=== PATIENT | male | born 1970 | race American Indian/Alaskan Native ===

== ENCOUNTER 2021-07-07 14:41 | Emergency (ER) | payer SELFPAY ==
[2021-07-07 16:51] LABS: Hematocrit 41.9 % (35.5-45.6); Hemoglobin 14.1 gm/dl (11.8-15.2); Mean Corpuscular HGB Conc 34 % (32-34); Mean Corpuscular Volume 92 fl (84-94); Platelet Count 309 K/mm3 (140-440); Red Blood Count 4.53 M/mm3 (3.65-5.03); Red Cell Distribution Width 13.3 % (13.2-15.2)
[2021-07-07 17:13] LABS: BUN/Creatinine Ratio 14; Blood Urea Nitrogen 15 mg/dL (9-20); Calcium 9.4 mg/dL (8.4-10.2); Hemolysis Index 13
[2021-07-07 17:16] LABS: Alanine Aminotransferase 8 units/L (7-56); Albumin 4.2 g/dL (3.9-5)
[2021-07-07 17:17] LABS: Bilirubin,Direct < 0.2 mg/dL (0-0.2)
--- NOTE | 2021-07-07 17:25 | Cat Scan Report ---
CT head/brain wo con INDICATION / CLINICAL INFORMATION: 50 years Male; seizure. TECHNIQUE: Routine CT head without contrast. All CT scans at this location are performed using CT dos e reduction for ALARA by means of automated exposure control. COMPARISON: None. FINDINGS: BRAIN / INTRACRANIAL CONTENTS: There is notable vasogenic edema involving anterior left frontal lobe with mild deformity of the left frontal horn at. Additionally, there is ill-defined heterogeneous les ion along the anterior frontal lobe measuring approximately 2.8 cm AP by 2.7 cm transverse in greates t dimensions. This finding would appear most consistent with metastatic process. There is mild degree of midline shift this region. There is otherwise mild cerebral white matter disease indicative of microvascular angiopathy at. Ther e is mild cerebral atrophy for age with corresponding mild prominence of the ventricular system. ORBITS: No significant abnormality of visualized orbits. SINUSES / MASTOIDS: No significant abnormality in the visualized paranasal sinuses or mastoid air hitesh ls. CRANIOCERVICAL JUNCTION: No significant abnormality. ADDITIONAL FINDINGS: None. IMPRESSION: 1. There is a heterogeneous mass along the anterior left frontal lobe with notable surrounding vasoge jaspal edema and mass effect as detailed above. The findings be most concerning for metastatic process a nd correlation would be needed. Pre and postcontrast MRI the brain would be recommended to further ch aracterize this finding. Signer Name: Tr Lima MD Signed: 07/07/2021 5:21 PM Workstation Name: [id number]
--- NOTE | 2021-07-07 18:27 | Emergency Department Report ---
<FATOU REYES - Last Filed: 07/07/21 19:38> ED Seizure HPI - General Chief Complaint: Seizure Stated Complaint: SEIZURES Time Seen by Provider: 07/07/21 16:11 Source: patient Mode of arrival: Ambulatory Limitations: No Limitations - History of Present Illness Initial Comments: 50-year-old male, no past medical history, presents to ED with complaint of seizures. Patient states he has been having "mini seizures " x4 days. Patient states he had 2 at home and 2 in [employer] grocery store. Patient states that the seizures were witnessed by his sister. She reported general tonic-clonic movement. Patient states prior to the episodes, he feels warm all over and lightheaded. States afterward the next thing he remembers is waking up on the floor. Patient denies any previous history of seizures. He denies any fever or headache. Patient reports daily alcohol use. States he usually drinks a sixpack per day. States he has not missed any days of drinking. Last drink was yesterday. MD Complaint: seizure -: days(s) (4) Description of Episode: loss of consciousness, tonic-clonic movement Witnessed:: Yes Seizure History: none Place: home, other Possible Precipitating Event: none Associated Symptoms: denies: fever/chills, tongue injury Treatments Prior to Arrival: none - Related Data Previous Rx's Medication Instructions Recorded Last Taken Type dexAMETHasone [Decadron] 4 mg PO Q6H 7 Days #28 tablet 07/07/21 Unknown Rx levETIRAcetam [Keppra TAB] 500 mg PO BID #60 tablet 07/07/21 Unknown Rx Allergies Allergy/AdvReac Type Severity Reaction Status Date / Time No Known Allergies Allergy Verified 07/07/21 14:59 ED Review of Systems Comment: All other systems reviewed and negative Constitutional: denies: fever Neurological: as per HPI. denies: headache, weakness, numbness, paresthesias ED Past Medical Hx - Past Medical History Previous Medical History?: No - Surgical History Past Surgical History?: No - Medications Home Medications: Home Medications Medication Instructions Recorded Confirmed Last Taken Type dexAMETHasone [Decadron] 4 mg PO Q6H 7 Days #28 tablet 07/07/21 Unknown Rx levETIRAcetam [Keppra TAB] 500 mg PO BID #60 tablet 07/07/21 Unknown Rx ED Physical Exam - General Limitations: No Limitations General appearance: alert, in no apparent distress - Head Head exam: Present: atraumatic, normocephalic - Eye Eye exam: Present: normal appearance, EOMI - ENT ENT exam: Present: mucous membranes moist - Neck Neck exam: Present: normal inspection - Respiratory Respiratory exam: Present: normal lung sounds bilaterally. Absent: respiratory distress - Cardiovascular Cardiovascular Exam: Present: regular rate, normal rhythm - GI/Abdominal GI/Abdominal exam: Present: soft. Absent: distended, tenderness - Extremities Exam Extremities exam: Present: normal inspection - Neurological Exam Neurological exam: Present: alert, oriented X3, CN II-XII intact, normal gait. Absent: motor sensory deficit - Psychiatric Psychiatric exam: Present: normal affect, normal mood - Skin Skin exam: Present: warm, dry, intact, normal color ED Course - Consultations Consultation #1: 07/07/21 18:23 Dr. Flaherty contacted regarding patient CT. States patient is to follow-up in his office on Saturday after [address] chest, abdomen, pe lvis, to look for origin of possible metastatic disease. Recommends discharge on Keppra 500 mg twice daily and dexamethasone 4 mg p.o. every 6 hours x1 week. ED Medical Decision Making - Lab Data Result diagrams: 07/07/21 16:40 07/07/21 16:40 - EKG Data -: EKG Interpreted by [place] EKG shows normal: sinus rhythm, axis, intervals, QRS complexes, ST-T waves Rate: normal - EKG Data Interpretation: no acute changes - Radiology Data Radiology results: report reviewed, image reviewed ED Disposition Clinical Impression: Lung mass, Brain mass, Seizure Lung cancer Qualifiers: Laterality: unspecified laterality Lung location: unspecified part of lung Qualified Code(s): C34.90 - Malignant neoplasm of unspecified part of un specified bronchus or lung Disposition: 01 HOME / SELF CARE / HOMELESS Condition: Stable Instructions: Metastatic Brain Tumor, Adult Additional Instructions: Please follow-up with Dr. Flaherty, neurosurgeon, on Saturday, July 10 after 1 PM. Please return to the emergency room if your symptoms worsen. Take medication as prescribed. Please do not drive or operate any heavy machinery until you are cleared to do so by neurosurgeon. Prescriptions: dexAMETHasone [Decadron] 4 mg PO Q6H 7 Days #28 tablet levETIRAcetam [Keppra TAB] 500 mg PO BID #60 tablet Referrals: WADE FLAHERTY II, MD [Staff Physician] - 07/10/21 <ZAINAB DUARTE III - Last Filed: 07/07/21 22:03> ED Review of Systems ROS: Stated complaint: SEIZURES Other details as noted in HPI ED Course Vital Signs 07/07/21 14:59 Temperature 99.1 F Pulse Rate 100 H Respiratory 16 Rate Blood Pressure 102/62 [Left] O2 Sat by Pulse 96 Oximetry - Reevaluation(s) Reevaluation #1: The patient was signed out to me from previous physician to follow-up on the CT scan of the chest and abdomen. The CT scan is back and it shows a bronchogenic mass. I will activate the previous physicians discharge in accordance with the already established plan. I discussed all results and clinical findings with patient. I discussed plan of care with patient. Patient agrees with plan of care. Patient is stable for discharge. Patient will be discharged home. Patient given discharge instruct ions. Patient voiced understanding of discharge instructions. 07/07/21 22:01 ED Medical Decision Making - Lab Data Result diagrams: 07/07/21 16:40 07/07/21 16:40 - Radiology Data Radiology results: report reviewed CT CHEST, ABDOMEN AND PELVIS WITH IV CONTRAST INDICATION: Seizure and brain mass. Lung mass. TECHNIQUE: Following the administration of intravenous contrast, multiple axial CT images of the chest, abdomen and pelvis were acquired. Sagittal and coronal reformats were obtained. All CT performed at this facility utilize dose reduction techniques including automated exposure control, iterative reconstruction and weight based dosing when appropriate to reduce patient radiation dose to as low as reasonably achievable. COMPARISON: CT of the head without contrast, 07/07/2021. No prior chest or abdominal imaging is available for comparison. FINDINGS: CHEST: The heart is normal in size. There is no pericardial effusion. Evaluation of the lung parenchyma demonstrates a lobulated hypodense left perihilar mass measuring approximately 3.6 x 4.8 x 4.4 cm. This mass encases the left upper lobe pulmonary arteries. Additionally, there are several smaller satellite lesions within the left upper lobe. As a reference, the largest of these measures 1.9 cm. There is a circumscribed 1.8 cm mass in the right lower lobe. Advanced bullous changes are noted throughout both lungs. Abdomen: The liver, gallbladder, stomach, spleen, pancreas, bilateral adrenal glands and bilateral kidneys show no evidence of acute abnormality. The abdominal aorta is normal in caliber. There is no free fluid or mesenteric adenopathy. The appendix is not clearly visualized. Pelvis: No free fluid is seen within the pelvis. The urinary bladder appears normal. Bones and Soft Tissues: Evaluation of bony structures demonstrates no destructi ve bony lesion. IMPRESSION: 1. Left perihilar mass as described most compatible with bronchogenic carcinoma with multiple satellite lesions to the left upper lobe and probable right lower lobe. 2. Marked bullous and emphysematous change. Critical care attestation.: If time is entered above; I have spent that time in minutes in the direct care of this critically ill patient, excluding procedure time. ED Disposition Is pt being admited?: No Does the pt Need Aspirin: No Time of Disposition: 22:01
[2021-07-07] MEDS ORDERED: DEXAMETHASONE 4 MG TAB PO ONE (19:12)
[2021-07-07] MEDS ORDERED: levETIRAcetam 1,000 MG in SODIUM CHLORIDE 0.9% 100 ML IV ONE (20:00)
[2021-07-07 20:15] LABS: Total Cells Counted 100
[2021-07-07 20:16] LABS: Platelet Estimate Consistent w Auto; RBC Morphology Normal
--- NOTE | 2021-07-07 21:40 | Cat Scan Report ---
CT CHEST, ABDOMEN AND PELVIS WITH IV CONTRAST INDICATION: Seizure and brain mass. Lung mass. TECHNIQUE: Following the administration of intravenous contrast, multiple axial CT images of the ches t, abdomen and pelvis were acquired. Sagittal and coronal reformats were obtained. All CT performed at this facility utilize dose reduction techniques including automated exposure control, iterative re construction and weight based dosing when appropriate to reduce patient radiation dose to as low as r easonably achievable. COMPARISON: CT of the head without contrast, 07/07/2021. No prior chest or abdominal imaging is avail able for comparison. FINDINGS: CHEST: The heart is normal in size. There is no pericardial effusion. Evaluation of the lung parenchyma demonstrates a lobulated hypodense left perihilar mass measuring ap proximately 3.6 x 4.8 x 4.4 cm. This mass encases the left upper lobe pulmonary arteries. Additionall y, there are several smaller satellite lesions within the left upper lobe. As a reference, the larges t of these measures 1.9 cm. There is a circumscribed 1.8 cm mass in the right lower lobe. Advanced bu llous changes are noted throughout both lungs. Abdomen: The liver, gallbladder, stomach, spleen, pancreas, bilateral adrenal glands and bilateral ki dneys show no evidence of acute abnormality. The abdominal aorta is normal in caliber. There is no fr ee fluid or mesenteric adenopathy. The appendix is not clearly visualized. Pelvis: No free fluid is seen within the pelvis. The urinary bladder appears normal. Bones and Soft Tissues: Evaluation of bony structures demonstrates no destructive bony lesion. IMPRESSION: 1. Left perihilar mass as described most compatible with bronchogenic carcinoma with multiple satelli te lesions to the left upper lobe and probable right lower lobe. 2. Marked bullous and emphysematous change. Signer Name: Megan Piper MD Signed: 07/07/2021 9:35 PM Workstation Name: [id number]
[2021-07-07 22:34] VITALS: BP 110/62
--- NOTE | 2021-07-08 12:20 | Electrocardiograph Report ---
[facility] Test Date: 2021-07-07 Test Time: 16:26:46 Pat Name: TRINI TORRES Department: Room: Gender: Selling Specialist: CHERIE : 1970 Requested By: FATOU REYES Order Number: [id number] Reading MD: Nasrin Wilson Measurements Intervals [place] Rate: 62 P: 28 MI: 162 QRS: 57 QRSD: 96 T: 50 QT: 426 QTc: 433 Interpretive Statements Sinus rhythm No previous ECG available for comparison Electronically Signed On 07-08-2021 12:20:07 EDT by Nasrin Wilson
== END 2021-07-07 22:33 | disposition home or self-care (01) ==
LOC: ED 14:41
DX: G40.89 Other seizures (principal); G93.89 Other specified disorders of brain; R91.8 Other nonspecific abnormal finding of lung field; C34.90 Malignant neoplasm of unspecified part of unspecified bronchus or lung
CPT/HCPCS: 36415; 70450; 71260; 74177; 80048; 80076; 85007; 85025; 93005; 96365; 99284; J1953; J8540; Q9967

== ENCOUNTER 2021-09-14 19:51 | Inpatient (IN) | payer SELFPAY ==
[2021-09-14] MEDS ORDERED: levETIRAcetam 1000 MG/NS 0.75% 1,000 MG/100 ML BAG IV ONE (20:12)
--- NOTE | 2021-09-14 20:15 | Emergency Department Report ---
Blank Doc - Documentation Documentation: [facility] Consult Note # Demographics Consult Type: Acute Stroke Level 1 (0-4.5 hrs) Patient Location: Emergency Room First Name: Austin Last Name: Dov Date of : 1970 Age: 50 Gender: Male Facility: [facility] Time of Initial Page ( Time): 09/14/2021, 19:54 Time of Return Call ( Time): 09/14/2021, 19:54 # HPI History: pt found with inability to walk and non-verbal Context/Pre-existing conditions: pre-existing motor deficit left # Scores Time of exam and NIHSS ( Time): 09/14/2021, 20:06 Level of Consciousness 1a: [3] = Responds only with reflex motor or unresponsive LOC Questions 1b: [2] = Answers neither correctly LOC Commands 1c: [2] = Performs neither correctly Best Gaze 2: [0] = Normal Visual 3: [0] = No visual loss Facial Palsy 4: [0] = Normal symmetrical movements Motor Arm Left 5a: [4] = No movement Motor Arm Right 5b: [4] = No movement Motor Leg Left 6a: [4] = No movement Motor Leg Right 6b: [4] = No movement Limb Ataxia 7: [0] = Absent Sensory 8: [0] = Normal Best Language 9: [3] = Mute Dysarthria 10: [2] = Severe dysarthria Extinction and Inattention 11: [0] = No abnormality NIHSS Total: 28 # PMH-FH-SH Past Medical History: cancer seizure stroke # Data Glucose: within normal limits Head CT: multiple hyperdense masses # Assessment Impression: multifocal brain masses # Plan Thrombolytic/Intervention: NOT IV Thrombolysis or IA Intervention candidate Thrombolytic Exclusion (< 3 hour window): other (see below) Thrombolytic Exclusion: multiple brain mets with hyperdense regions Thrombolytic/Intraarterial Exclusion: IV thrombolytic and IA intervention considered but not recommended as this patient's symptoms are not clinically consistent with an assumed diagnosis of stroke Imaging: (urgency: STAT): CT Head without contrast Imaging: (urgency: routine): MRI Brain with AND without contrast Medication: levetiracetam (Keppra) 1000 mg twice daily ativna trial Other: consult neurosurgery I have discussed my recommendations with the referring provider Additional Recommendations: dex 10mg IV # Logistics Telemedicine: Interactive 2 way audio and visual telecommunication technology was utilized during this visit
[2021-09-14 20:17] LABS: Basophils # (Auto) 0.3 K/mm3 (0.0-0.1); Basophils % (Auto) 1.9 % (0.0-1.8); Eosinophils # (Auto) 0.1 K/mm3 (0.0-0.4); Eosinophils % (Auto) 0.5 % (0.0-4.3); Hematocrit 38.5 % (35.5-45.6); Hemoglobin 12.5 gm/dl (11.8-15.2); Lymphocytes # (Auto) 1.1 K/mm3 (1.2-5.4); Lymphocytes % (Auto) 8.1 % (13.4-35.0); Mean Corpuscular HGB Conc 33 % (32-34); Mean Corpuscular Volume 87 fl (84-94); Monocytes # (Auto) 0.9 K/mm3 (0.0-0.8); Monocytes % (Auto) 6.2 % (0.0-7.3); Platelet Count 435 K/mm3 (140-440); Red Cell Distribution Width 14.1 % (13.2-15.2)
--- NOTE | 2021-09-14 20:24 | Cat Scan Report ---
CT head/brain wo con INDICATION: Stroke symptoms. TECHNIQUE: Routine CT head. All CT scans at this location are performed using CT dose reduction for A HODA by means of automated exposure control. COMPARISON: None. FINDINGS: Intracranial: Numerous new hyperattenuating metastasis involving the hugo, left occipital lobe, right temporal lobe, bifrontal lobes, and right parietal lobe. Large quantity of surrounding vasogenic emerita ma. There is a suspected extra-axial metastasis underlying the left craniotomy site. The left frontal mass is larger than prior exam. No hydrocephalus. No acute infarction. No acute hemorrhage. Sinuses: Paranasal sinuses and mastoid air cells are essentially clear. Orbits: Globes are intact. Calvarium: No acute fracture. IMPRESSION: 1. Progression of disease. Numerous new metastasis and interval enlargement left frontal metastasis. Can correlate with MR brain with and without contrast if indicated. Signer Name: Sadi Martin MD Signed: 09/14/2021 8:19 PM Workstation Name: [id number]
[2021-09-14 20:27] LABS: INR 1.01 (0.87-1.13)
[2021-09-14 20:28] LABS: Partial Thromboplastin Time 38.4 Sec. (24.2-36.6); Thrombin Time 15.1 Sec. (15.1-19.6)
[2021-09-14 20:33] LABS: Alanine Aminotransferase 12 units/L (7-56); Albumin 3.6 g/dL (3.9-5); BUN/Creatinine Ratio 25; Blood Urea Nitrogen 20 mg/dL (9-20); Hemolysis Index 0
--- NOTE | 2021-09-14 21:18 | Emergency Department Report ---
ED General Adult HPI - General Chief complaint: Neuro Symptoms/Deficit Stated complaint: CODE STROKE Time Seen by Provider: 09/14/21 19:57 Source: EMS Mode of arrival: Stretcher Limitations: Altered Mental Status - History of Present Illness Initial comments: Med 13 who picked up patient at home. Family reports last LKWT [id number]. 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 The found patient nonverbal and unable to walk. Patient taken to CT scan and speaking with Teleneurologist. ER MD at the bedside. -: Sudden Severity scale (0 -10): 0 - Related Data Previous Rx's Medication Instructions Recorded Last Taken Type dexAMETHasone [Decadron] 4 mg PO Q6H 7 Days #28 tablet 07/07/21 Unknown Rx levETIRAcetam [Keppra TAB] 500 mg PO BID #60 tablet 07/07/21 Unknown Rx Allergies Allergy/AdvReac Type Severity Reaction Status Date / Time No Known Allergies Allergy Verified 07/07/21 14:59 ED Review of Systems ROS: Stated complaint: CODE STROKE Other details as noted in HPI Comment: Unobtainable due to pts medical conditions ED Past Medical Hx - Past Medical History Previous Medical History?: Yes Hx CVA: Yes (Left sided deficits) Hx of Cancer: Yes (Lung cancer) Hx Seizures: Yes - Medications Home Medications: Home Medications Medication Instructions Recorded Confirmed Last Taken Type dexAMETHasone [Decadron] 4 mg PO Q6H 7 Days #28 tablet 07/07/21 Unknown Rx levETIRAcetam [Keppra TAB] 500 mg PO BID #60 tablet 07/07/21 Unknown Rx ED Physical Exam - General Limitations: Altered Mental Status, Physical Limitation General appearance: obtunded, cachectic - Head Head exam: Present: atraumatic, normocephalic - Eye Eye exam: Present: normal appearance Pupils: Present: normal accommodation - Respiratory Respiratory exam: Present: normal lung sounds bilaterally - Cardiovascular Cardiovascular Exam: Present: tachycardia - GI/Abdominal GI/Abdominal exam: Present: soft - Rectal Rectal exam: Present: deferred - Expanded Neurological Exam Expanded Cranial nerves: Gag Reflex: Normal Best Eye Response ([place]): (4) open spontaneously Best Motor Response ([place]): (4) withdraws to pain Best Verbal Response ([place]): (1) no verbal response [place] Total: 9 - Skin Skin exam: Present: warm ED Course Vital Signs 09/14/21 20:28 Temperature 97.7 F Pulse Rate 134 H Respiratory 20 Rate Blood Pressure 165/113 [Right] O2 Sat by Pulse 94 Oximetry - Reevaluation(s) Reevaluation #1: 09/14/21 21:15 code stroke called on arrival, ct head showed diffuse mets spoke with tele neuro, no TPA , keppra andativan and admit ED Medical Decision Making - Lab Data Result diagrams: 09/14/21 20:09 09/14/21 20:09 Critical care attestation.: If time is entered above; I have spent that time in minutes in the direct care of this critically ill patient, excluding procedure time. ED Disposition Clinical Impression: Altered mental status, Brain metastasis, Seizure Disposition: ADMITTED INPATIENT Is pt being admited?: Yes Does the pt Need Aspirin: No Condition: Poor
[2021-09-14] MEDS ORDERED: ACETAMINOPHEN 325 MG TAB PO PRN (21:42)
[2021-09-14] MEDS ORDERED: HYDROmorphone 1 MG/1 ML INJ IV PRN (21:42)
[2021-09-14] MEDS ORDERED: ALBUTEROL 2.5 MG/3 ML NEBU IH PRN (21:42)
[2021-09-14] MEDS ORDERED: hydrALAZINE 20 MG/1 ML INJ ONE (21:42)
[2021-09-14] MEDS ORDERED: ONDANSETRON 4 MG/2 ML INJ IV PRN (21:42)
[2021-09-14] MEDS ORDERED: METOPROLOL TARTRATE 5 MG/5 ML INJ IV ONE ×2 (21:43→21:45)
--- NOTE | 2021-09-14 21:51 | History and Physical Report ---
History of Present Illness Date of examination: 09/14/21 Date of admission: 09/14/21 Chief complaint: Nonverbal Aphasia History of present illness: 50-year male with history of CVA with left-sided deficit was brought to the hospital because patient becomes suddenly nonverbal. Family reports last LKWT 183. 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 The found patient nonverbal and unable to walk. Patient taken to CT scan and speaking with Teleneurologist. CT head showed diffuse mets. spoke with tele neuro, who recommends no TPA , keppra 500 mg IV every 12 hours and ativan as needed and admit patient. We will do MRI of the brain and MRA of the brain and neck and consult neurology. Past History Past Medical History: seizures, stroke, other (Lung cancer) Medications and Allergies Allergies Allergy/AdvReac Type Severity Reaction Status Date / Time No Known Allergies Allergy Verified 07/07/21 14:59 Home Medications Medication Instructions Recorded Confirmed Last Taken Type dexAMETHasone [Decadron] 4 mg PO Q6H 7 Days #28 tablet 07/07/21 Unknown Rx levETIRAcetam [Keppra TAB] 500 mg PO BID #60 tablet 07/07/21 Unknown Rx Review of Systems All systems: negative Neurological: paralysis, weakness, aphasia, change in speech Exam - Constitutional Vitals: Temp Pulse Resp BP Pulse Ox 97.7 F 134 H 22 165/113 90 09/14/21 20:28 09/14/21 20:28 09/14/21 20:58 09/14/21 20:28 09/14/21 20:58 General appearance: Present: no acute distress, well-nourished - EENT Eyes: Present: PERRL ENT: hearing intact, clear oral mucosa - Neck Neck: Present: supple, normal ROM - Respiratory Respiratory effort: normal Respiratory: bilateral: CTA - Cardiovascular Heart Sounds: Present: S1 & S2. Absent: rub, click - Extremities Extremities: pulses symmetrical, No edema Peripheral Pulses: within normal limits - Abdominal General gastrointestinal: Present: soft, non-tender, non-distended, normal bowel sounds Male genitourinary: Present: normal - Integumentary Integumentary: Present: clear, warm, dry - Musculoskeletal Musculoskeletal: gait normal, strength equal bilaterally - Psychiatric Psychiatric: appropriate mood/affect, intact judgment & insight - Neurologic Neurologic: CNII-XII intact (Patient is nonverbal unable to walk aphasic), other HEART Score - HEART Score Troponin: Troponin T < 0.010 ng/mL (0.00-0.029) 09/14/21 20:09 Results - Labs CBC & Chem 7: 09/14/21 20:09 09/14/21 20:09 Labs: Laboratory Last Values WBC 13.9 K/mm3 (4.5-11.0) H 09/14/21 20:09 RBC 4.40 M/mm3 (3.65-5.03) 09/14/21 20:09 Hgb 12.5 gm/dl (11.8-15.2) 09/14/21 20:09 Hct 38.5 % (35.5-45.6) 09/14/21 20:09 MCV 87 fl (84-94) 09/14/21 20:09 MCH 29 pg (28-32) 09/14/21 20:09 MCHC 33 % (32-34) 09/14/21 20:09 RDW 14.1 % (13.2-15.2) 09/14/21 20:09 Plt Count 435 K/mm3 (140-440) 09/14/21 20:09 Lymph % (Auto) 8.1 % (13.4-35.0) L 09/14/21 20:09 [place] % (Auto) 6.2 % (0.0-7.3) 09/14/21 20:09 Eos % (Auto) 0.5 % (0.0-4.3) 09/14/21 20:09 Baso % (Auto) 1.9 % (0.0-1.8) H 09/14/21 20:09 Lymph # (Auto) 1.1 K/mm3 (1.2-5.4) L 09/14/21 20:09 [place] # (Auto) 0.9 K/mm3 (0.0-0.8) H 09/14/21 20:09 Eos # (Auto) 0.1 K/mm3 (0.0-0.4) 09/14/21 20:09 Baso # (Auto) 0.3 K/mm3 (0.0-0.1) H 09/14/21 20:09 Seg Neutrophils % 83.3 % (40.0-70.0) H 09/14/21 20:09 Seg Neutrophils # 11.6 K/mm3 (1.8-7.7) H 09/14/21 20:09 PT 14.4 Sec. (12.2-14.9) 09/14/21 20:09 INR 1.01 (0.87-1.13) 09/14/21 20:09 APTT 38.4 Sec. (24.2-36.6) H 09/14/21 20:09 Thrombin Time 15.1 Sec. (15.1-19.6) 09/14/21 20:09 Sodium 133 mmol/L (137-145) L 09/14/21 20:09 Potassium 4.3 mmol/L (3.6-5.0) 09/14/21 20:09 Chloride 93.5 mmol/L (98-107) L 09/14/21 20:09 Carbon Dioxide 21 mmol/L (22-30) L 09/14/21 20:09 Anion Gap 23 mmol/L 09/14/21 20:09 BUN 20 mg/dL (9-20) 09/14/21 20:09 Creatinine 0.8 mg/dL (0.8-1.3) 09/14/21 20:09 Estimated GFR > 60 ml/min 09/14/21 20:09 BUN/Creatinine Ratio 25 % 09/14/21 20:09 Glucose 97 mg/dL (75-100) 09/14/21 20:09 Calcium 11.0 mg/dL (8.4-10.2) H 09/14/21 20:09 Total Bilirubin 0.50 mg/dL (0.1-1.2) 09/14/21 20:09 AST 34 units/L (5-40) 09/14/21 20:09 ALT 12 units/L (7-56) 09/14/21 20:09 Alkaline Phosphatase 124 units/L (35-129) 09/14/21 20:09 Total Creatine Kinase 125 units/L (55-170) 09/14/21 20:09 CK-MB (CK-2) 10.0 ng/mL (0.0-4.0) H 09/14/21 20:09 CK-MB (CK-2) Rel Index 8.0 (0-4) H 09/14/21 20:09 Troponin T < 0.010 ng/mL (0.00-0.029) 09/14/21 20:09 Total Protein 8.3 g/dL (6.3-8.2) H 09/14/21 20:09 Albumin 3.6 g/dL (3.9-5) L 09/14/21 20:09 Albumin/Globulin Ratio 0.8 % 09/14/21 20:09 - Imaging and Cardiology CT Scan - head: report reviewed Assessment and Plan VTE prophylaxis?: Mechanical Plan of care discussed with patient/family: Yes - Patient Problems (1) Brain metastasis Status: Acute Plan to address problem: Admit the patient to the medical telemetry. NPO. IV fluid D5 normal saline at the rate of 100 cc/h. MRI of the brain and MRA of the brain and neck with and without contrast. PT OT speech evaluation. Neurology evaluation. Prognosis is guarded. (2) Altered mental status Status: Acute Plan to address problem: Secondary to brain mets. NPO. IV fluid D5 normal saline at the rate of 100 cc/h. MRI of the brain and MRA of the brain and neck with and without contrast. PT OT speech evaluation. Neurology evaluation. Prognosis is guarded. (3) Lung cancer Status: Acute Plan to address problem: Patient has history of lung cancer with diffuse brain mets. Will consult oncology. Prognosis is guarded (4) Seizure Status: Acute Plan to address problem: Patient has history of seizure. Keppra 500 mg IV every 12 hours. Neurology evaluation (5) Tachycardia Status: Acute Plan to address problem: Lopressor 5 mg IV every 6 hours as needed. Echocardiogram. Consult cardiology if needed (6) DVT prophylaxis Status: Acute Plan to address problem: SCD for DVT prophylaxis because of brain mets. Pepcid 20 mg IV every 12 hours for GI prophylaxis. Patient is a full code
--- NOTE | 2021-09-14 22:33 | XRay Report ---
CHEST 1 VIEW 09/14/2021 9:20 PM INDICATION / CLINICAL INFORMATION: SOB. COMPARISON: CT chest with contrast from 07/07/2021. FINDINGS: SUPPORT DEVICES: None. HEART / MEDIASTINUM: The left border of the cardiomediastinal silhouette is obscured. No significant abnormality is clearly seen. LUNGS / PLEURA: There are generalized left pleural parenchymal opacities with right basilar opacities also noted. The right lung is otherwise clear. No pneumothorax. ADDITIONAL FINDINGS: No significant additional findings. IMPRESSION: 1. Suspected left pneumonia versus a large layering left pleural effusion with associated atelectasis . 2. Right basilar pneumonia versus atelectasis. Continued radiographic follow-up to resolution is jolynn mmended. Signer Name: Mayito Munoz MD Signed: 09/14/2021 10:29 PM Workstation Name: [id number]
[2021-09-15] MEDS ORDERED: LORazepam 2 MG/ML VIAL ONE (00:36)
[2021-09-15] MEDS: FAMOTIDINE 20 MG/2 ML INJ IV SCH ×3 (00:46→22:14)
[2021-09-15] MEDS: cefTRIAXone/NS 1 GM/50 ML 1 GM/50 ML BAG IV SCH ×2 (00:46→22:14)
[2021-09-15] MEDS: LORazepam 2 MG/ML VIAL IV PRN ×4 (00:46→18:30)
[2021-09-15] MEDS: D5W/0.9% NACL 1,000 ML IV SCH (00:47)
[2021-09-15] MEDS ORDERED: FUROSEMIDE 40 MG/4 ML INJ IV ONE (03:44)
[2021-09-15] MEDS: MORPHINE 2 MG/1 ML INJ IV PRN ×2 (04:40→18:30)
[2021-09-15 05:33] LABS: Hematocrit 39.1 % (35.5-45.6); Mean Corpuscular HGB Conc 33 % (32-34); Mean Corpuscular Volume 88 fl (84-94); Platelet Count 406 K/mm3 (140-440); Red Blood Count 4.46 M/mm3 (3.65-5.03); Red Cell Distribution Width 14.2 % (13.2-15.2)
[2021-09-15 05:56] LABS: Blood Urea Nitrogen 20 mg/dL (9-20); Calcium 11.3 mg/dL (8.4-10.2); Chol/HDL Ratio 4.31 %; HDL Cholesterol 45 mg/dL (40-59); Hemolysis Index 48; LDL Cholesterol,Direct 122 mg/dL (50-130)
[2021-09-15] MEDS: IPRATROPIUM/ALBUTEROL SULFATE 3 ML AMPUL.NEB IH SCH ×4 (06:02→23:34)
[2021-09-15 06:08] LABS: BUN/Creatinine Ratio 29
[2021-09-15 06:36] LABS: Total Cells Counted 100
[2021-09-15 06:42] LABS: Platelet Estimate Consistent w Auto; RBC Morphology Normal
--- NOTE | 2021-09-15 08:20 | Progress Note ---
Assessment and Plan Assessment and plan: (1) Brain metastasis Status: Acute Plan to address problem: Admit the patient to the medical telemetry. NPO. IV fluid D5 normal saline at the rate of 100 cc/h. MRI of the brain and MRA of the brain and neck with and without contrast. PT OT speech evaluation. Neurology evaluation. Prognosis is guarded. (2) Altered mental status Status: Acute Plan to address problem: Secondary to brain mets. NPO. IV fluid D5 normal saline at the rate of 100 cc/h. MRI of the brain and MRA of the brain and neck with and without contrast. PT OT speech evaluation. Neurology evaluation. Prognosis is guarded. (3) Lung cancer Status: Acute Plan to address problem: Patient has history of lung cancer with diffuse brain mets. Will consult oncology. Prognosis is guarded (4) Seizure Status: Acute Plan to address problem: Patient has history of seizure. Keppra 500 mg IV every 12 hours. Neurology evaluation (5) Tachycardia Status: Acute Plan to address problem: Lopressor 5 mg IV every 6 hours as needed. Echocardiogram. Consult cardiology if needed (6) DVT prophylaxis Status: Acute Plan to address problem: SCD for DVT prophylaxis because of brain mets. Pepcid 20 mg IV every 12 hours for GI prophylaxis. Patient is a full code 09/15/21 Patient with history of lung cancer with brain mets. Presents with altered mental status, non verbal. CT shows Brain mets with progression of disease. For MRI Brain today. Neurology consulted Will also consult Dr. Gamez, Hematology/Oncologist History Interval history: Altered mental status Nonverbal Hospitalist Physical - Physical exam Narrative exam: Gen:Not in acute distress, lying in bed HEENT:Normocephalic, Chjest:Clear to auscultation bilat, no rales Heart:S1 and S2 reg, no murmurs, rub s or gallop Abd:soft, non tender, non distended, normal bowel sounds Ext:no edema, no clubbing, no cyanosis Neuro:awake,agitated,does not follow commands,residual left sided weakness - Constitutional Vitals: Temp Pulse Resp BP Pulse Ox 97.7 F 135 H 34 H 140/103 96 09/14/21 20:28 09/15/21 07:23 09/15/21 07:23 09/15/21 07:23 09/15/21 07:23 General appearance: Present: no acute distress, well-nourished HEART Score - HEART Score Troponin: Troponin T < 0.010 ng/mL (0.00-0.029) 09/14/21 20:09 Results - Labs CBC & Chem 7: 09/15/21 05:00 09/15/21 05:00 Labs: Laboratory Last Values WBC 18.0 K/mm3 (4.5-11.0) H 09/15/21 05:00 RBC 4.46 M/mm3 (3.65-5.03) 09/15/21 05:00 Hgb 13.0 gm/dl (11.8-15.2) 09/15/21 05:00 Hct 39.1 % (35.5-45.6) 09/15/21 05:00 MCV 88 fl (84-94) 09/15/21 05:00 MCH 29 pg (28-32) 09/15/21 05:00 MCHC 33 % (32-34) 09/15/21 05:00 RDW 14.2 % (13.2-15.2) 09/15/21 05:00 Plt Count 406 K/mm3 (140-440) 09/15/21 05:00 Lymph % (Auto) 8.1 % (13.4-35.0) L 09/14/21 20:09 [place] % (Auto) 6.2 % (0.0-7.3) 09/14/21 20:09 Eos % (Auto) 0.5 % (0.0-4.3) 09/14/21 20:09 Baso % (Auto) 1.9 % (0.0-1.8) H 09/14/21 20:09 Lymph # (Auto) 1.1 K/mm3 (1.2-5.4) L 09/14/21 20:09 [place] # (Auto) 0.9 K/mm3 (0.0-0.8) H 09/14/21 20:09 Eos # (Auto) 0.1 K/mm3 (0.0-0.4) 09/14/21 20:09 Baso # (Auto) 0.3 K/mm3 (0.0-0.1) H 09/14/21 20:09 Add Manual Diff Complete 09/15/21 05:00 Total Counted 100 09/15/21 05:00 Seg Neutrophils % It Teacher 09/15/21 05:00 Seg Neuts % (Manual) 91.0 % (40.0-70.0) H 09/15/21 05:00 Lymphocytes % (Manual) 7.0 % (13.4-35.0) L 09/15/21 05:00 Monocytes % (Manual) 2.0 % (0.0-7.3) 09/15/21 05:00 Nucleated RBC % Not Reportable 09/15/21 05:00 Seg Neutrophils # 11.6 K/mm3 (1.8-7.7) H 09/14/21 20:09 Seg Neutrophils # Man 16.4 K/mm3 (1.8-7.7) H 09/15/21 05:00 Band Neutrophils # 0.0 K/mm3 09/15/21 05:00 Lymphocytes # (Manual) 1.3 K/mm3 (1.2-5.4) 09/15/21 05:00 Abs React Lymphs (Man) 0.0 K/mm3 09/15/21 05:00 Monocytes # (Manual) 0.4 K/mm3 (0.0-0.8) 09/15/21 05:00 Eosinophils # (Manual) 0.0 K/mm3 (0.0-0.4) 09/15/21 05:00 Basophils # (Manual) 0.0 K/mm3 (0.0-0.1) 09/15/21 05:00 Metamyelocytes # 0.0 K/mm3 09/15/21 05:00 Myelocytes # 0.0 K/mm3 09/15/21 05:00 Promyelocytes # 0.0 K/mm3 09/15/21 05:00 Blast Cells # 0.0 K/mm3 09/15/21 05:00 WBC Morphology Not Reportable 09/15/21 05:00 Hypersegmented Neuts Not Reportable 09/15/21 05:00 Hyposegmented Neuts Not Reportable 09/15/21 05:00 Hypogranular Neuts Not Reportable 09/15/21 05:00 Smudge Cells Not Reportable 09/15/21 05:00 Toxic Granulation Not Reportable 09/15/21 05:00 Toxic Vacuolation Not Reportable 09/15/21 05:00 Dohle Bodies Not Reportable 09/15/21 05:00 Pelger-Huet Anomaly Not Reportable 09/15/21 05:00 Alex Rods Not Reportable 09/15/21 05:00 Platelet Estimate Consistent w auto 09/15/21 05:00 Clumped Platelets Not Reportable 09/15/21 05:00 Plt Clumps, EDTA Not Reportable 09/15/21 05:00 Large Platelets Not Reportable 09/15/21 05:00 Giant Platelets Not Reportable 09/15/21 05:00 Platelet Satelliting Not Reportable 09/15/21 05:00 Plt Morphology Comment Not Reportable 09/15/21 05:00 RBC Morphology Normal 09/15/21 05:00 Dimorphic RBCs Not Reportable 09/15/21 05:00 Polychromasia Not Reportable 09/15/21 05:00 Hypochromasia Not Reportable 09/15/21 05:00 Poikilocytosis Not Reportable 09/15/21 05:00 Anisocytosis Not Reportable 09/15/21 05:00 Microcytosis Not Reportable 09/15/21 05:00 Macrocytosis Not Reportable 09/15/21 05:00 Spherocytes Not Reportable 09/15/21 05:00 Pappenheimer Bodies Not Reportable 09/15/21 05:00 Sickle Cells Not Reportable 09/15/21 05:00 Target Cells Not Reportable 09/15/21 05:00 Tear Drop Cells Not Reportable 09/15/21 05:00 Ovalocytes Not Reportable 09/15/21 05:00 Helmet Cells Not Reportable 09/15/21 05:00 Vincent-Stanfield Bodies Not Reportable 09/15/21 05:00 Etna Rings Not Reportable 09/15/21 05:00 Heladio Cells Not Reportable 09/15/21 05:00 Bite Cells Not Reportable 09/15/21 05:00 Crenated Cell Not Reportable 09/15/21 05:00 Elliptocytes Not Reportable 09/15/21 05:00 Acanthocytes (Spur) Not Reportable 09/15/21 05:00 Rouleaux Not Reportable 09/15/21 05:00 Hemoglobin C Crystals Not Reportable 09/15/21 05:00 Schistocytes Not Reportable 09/15/21 05:00 Malaria parasites Not Reportable 09/15/21 05:00 Ruy Bodies Not Reportable 09/15/21 05:00 Hem Pathologist Commnt No 09/15/21 05:00 PT 14.4 Sec. (12.2-14.9) 09/14/21 20:09 INR 1.01 (0.87-1.13) 09/14/21 20:09 APTT 38.4 Sec. (24.2-36.6) H 09/14/21 20:09 Thrombin Time 15.1 Sec. (15.1-19.6) 09/14/21 20:09 Sodium 135 mmol/L (137-145) L 09/15/21 05:00 Potassium 4.8 mmol/L (3.6-5.0) 09/15/21 05:00 Chloride 94.4 mmol/L (98-107) L 09/15/21 05:00 Carbon Dioxide 23 mmol/L (22-30) 09/15/21 05:00 Anion Gap 22 mmol/L 09/15/21 05:00 BUN 20 mg/dL (9-20) 09/15/21 05:00 Creatinine 0.7 mg/dL (0.8-1.3) L 09/15/21 05:00 Estimated GFR > 60 ml/min 09/15/21 05:00 BUN/Creatinine Ratio 29 % 09/15/21 05:00 Glucose 117 mg/dL (75-100) H 09/15/21 05:00 Lactic Acid 1.50 mmol/L (0.7-2.0) 09/15/21 05:00 Calcium 11.3 mg/dL (8.4-10.2) H 09/15/21 05:00 Total Bilirubin 0.50 mg/dL (0.1-1.2) 09/14/21 20:09 AST 34 units/L (5-40) 09/14/21 20:09 ALT 12 units/L (7-56) 09/14/21 20:09 Alkaline Phosphatase 124 units/L (35-129) 09/14/21 20:09 Total Creatine Kinase 125 units/L (55-170) 09/14/21 20:09 CK-MB (CK-2) 10.0 ng/mL (0.0-4.0) H 09/14/21 20:09 CK-MB (CK-2) Rel Index 8.0 (0-4) H 09/14/21 20:09 Troponin T < 0.010 ng/mL (0.00-0.029) 09/14/21 20:09 Total Protein 8.3 g/dL (6.3-8.2) H 09/14/21 20:09 Albumin 3.6 g/dL (3.9-5) L 09/14/21 20:09 Albumin/Globulin Ratio 0.8 % 09/14/21 20:09 Triglycerides 105 mg/dL (2-149) 09/15/21 05:00 Cholesterol 194 mg/dL (50-199) 09/15/21 05:00 LDL Cholesterol Direct 122 mg/dL (50-130) 09/15/21 05:00 HDL Cholesterol 45 mg/dL (40-59) 09/15/21 05:00 Cholesterol/HDL Ratio 4.31 % 09/15/21 05:00 Active Medications - Current Medications Current Medications: Generic Name Dose Route Start Last Admin Trade Name Freq PRN Reason Stop Dose Admin Acetaminophen 650 mg 09/14/21 21:42 Acetaminophen 325 Mg Tab PO Q4H PRN Pain MILD(1-3)/Fever >100.5/WEBSTER Albuterol 2.5 mg 09/14/21 21:42 Albuterol 2.5 Mg/3 Ml Nebu IH Q4HRT PRN Shortness Of Breath Albuterol/Ipratropium 1 ampul 09/15/21 02:00 09/15/21 06:02 Ipratropium/Albuterol Sulfate 3 Ml Ampul.Neb IH Not Given Q6HRT ALEXX Atorvastatin Calcium 40 mg 09/14/21 22:00 09/15/21 00:31 Atorvastatin 40 Mg Tab PO Not Given QHS ALEXX Famotidine 20 mg 09/14/21 22:00 09/15/21 00:46 Famotidine 20 Mg/2 Ml Inj IV 20 mg BID ALEXX Administration Hydromorphone HCl 0.5 mg 09/14/21 21:42 Hydromorphone 1 Mg/1 Ml Inj IV Q3H PRN Pain , Severe (7-10) Dextrose/Sodium Chloride 1,000 mls @ 100 mls/hr 09/14/21 22:00 09/15/21 00:47 D5ns IV 100 mls/hr DIRECT ALEXX Administration Levetiracetam 500 mg/ Dextrose 105 mls @ 400 mls/hr 09/15/21 10:00 IV Q12HR ALEXX Ceftriaxone Sodium 1 gm in 50 mls @ 100 mls/hr 09/14/21 23:00 09/15/21 00:46 Rocephin/Ns 1 Gm/50 Ml IV 09/18/21 22:29 100 mls/hr Q24HR@2200 ALEXX Administration Protocol Labetalol HCl 10 mg 09/14/21 21:42 Labetalol 20 Mg/4 Ml Inj IV Q5MIN PRN to maintain SBP < 180 Lorazepam 1 mg 09/15/21 00:35 09/15/21 05:31 Lorazepam 2 Mg/Ml Vial IV 1 mg Q4H PRN Administration Seizures Metoprolol Tartrate 5 mg 09/14/21 21:56 Metoprolol Tartrate 5 Mg/5 Ml Inj IV Q6H PRN Tachycardia Morphine Sulfate 2 mg 09/14/21 21:42 09/15/21 04:40 Morphine 2 Mg/1 Ml Inj IV 2 mg Q4H PRN Administration Pain, Moderate (4-6) Ondansetron HCl 4 mg 09/14/21 21:42 Ondansetron 4 Mg/2 Ml Inj IV Q8H PRN Nausea And Vomiting Sodium Chloride 10 ml 09/14/21 22:00 09/15/21 00:31 Sodium Chloride 0.9% 10 Ml Flush Syringe IV 10 ml BID ALEXX Administration Sodium Chloride 10 ml 09/14/21 21:42 Sodium Chloride 0.9% 10 Ml Flush Syringe IV PRN PRN LINE FLUSH
[2021-09-15] MEDS ORDERED: LORazepam 2 MG/ML VIAL IV PRN (08:30)
--- NOTE | 2021-09-15 11:47 | Electrocardiograph Report ---
[facility] Test Date: 2021-09-14 Test Time: 21:39:27 Pat Name: TRINI TORRES Department: Room: A480 Gender: M Digital Campaign Manager: SIVA : 1970 Requested By: ASHWINI JARAMILLO Order Number: [id number] Reading MD: Vinay Agudelo Measurements Intervals Lehr Rate: 128 P: 57 [place]: 139 QRS: 24 QRSD: 89 T: 53 QT: 312 QTc: 456 Interpretive Statements Sinus tachycardia Compared to ECG 07/07/2021 16:26:46 Rate is faster. Electronically Signed On 09-15-2021 11:47:21 EST by Vinay Agudelo
--- NOTE | 2021-09-15 13:07 | Hem/Onc Consultation ---
History of Present Illness - Reason for Consult Consult date: 09/15/21 Brain metastasis, history of lung ca - History of Present Illness Heme prelim note data review This is 50yo male with history of lung cancer, with brain metastasis, presents to ED nonverbal History of CVA with left sided deficit CT head c/w diffuse mets As per notes, teleneuro recommends no TPA, keppra 500 mg IV every 12 hours and ativan as needed DATA REVIEWED BELOW IMP: Brain mets with progression of disease REC/PLAN: Recommend brain MRI Prognosis poor Laboratory Last Values WBC 18.0 K/mm3 (4.5-11.0) H 09/15/21 05:00 RBC 4.46 M/mm3 (3.65-5.03) 09/15/21 05:00 Hgb 13.0 gm/dl (11.8-15.2) 09/15/21 05:00 Hct 39.1 % (35.5-45.6) 09/15/21 05:00 MCV 88 fl (84-94) 09/15/21 05:00 MCH 29 pg (28-32) 09/15/21 05:00 MCHC 33 % (32-34) 09/15/21 05:00 RDW 14.2 % (13.2-15.2) 09/15/21 05:00 Plt Count 406 K/mm3 (140-440) 09/15/21 05:00 Lymph % (Auto) 8.1 % (13.4-35.0) L 09/14/21 20:09 [place] % (Auto) 6.2 % (0.0-7.3) 09/14/21 20:09 Eos % (Auto) 0.5 % (0.0-4.3) 09/14/21 20:09 Baso % (Auto) 1.9 % (0.0-1.8) H 09/14/21 20:09 Lymph # (Auto) 1.1 K/mm3 (1.2-5.4) L 09/14/21 20:09 [place] # (Auto) 0.9 K/mm3 (0.0-0.8) H 09/14/21 20:09 Eos # (Auto) 0.1 K/mm3 (0.0-0.4) 09/14/21 20:09 Baso # (Auto) 0.3 K/mm3 (0.0-0.1) H 09/14/21 20:09 Add Manual Diff Complete 09/15/21 05:00 Total Counted 100 09/15/21 05:00 Seg Neutrophils % Rocket [employer] Component Mechanic 09/15/21 05:00 Seg Neuts % (Manual) 91.0 % (40.0-70.0) H 09/15/21 05:00 Lymphocytes % (Manual) 7.0 % (13.4-35.0) L 09/15/21 05:00 Monocytes % (Manual) 2.0 % (0.0-7.3) 09/15/21 05:00 Nucleated RBC % Not Reportable 09/15/21 05:00 Seg Neutrophils # 11.6 K/mm3 (1.8-7.7) H 09/14/21 20:09 Seg Neutrophils # Man 16.4 K/mm3 (1.8-7.7) H 09/15/21 05:00 Band Neutrophils # 0.0 K/mm3 09/15/21 05:00 Lymphocytes # (Manual) 1.3 K/mm3 (1.2-5.4) 09/15/21 05:00 Abs React Lymphs (Man) 0.0 K/mm3 09/15/21 05:00 Monocytes # (Manual) 0.4 K/mm3 (0.0-0.8) 09/15/21 05:00 Eosinophils # (Manual) 0.0 K/mm3 (0.0-0.4) 09/15/21 05:00 Basophils # (Manual) 0.0 K/mm3 (0.0-0.1) 09/15/21 05:00 Metamyelocytes # 0.0 K/mm3 09/15/21 05:00 Myelocytes # 0.0 K/mm3 09/15/21 05:00 Promyelocytes # 0.0 K/mm3 09/15/21 05:00 Blast Cells # 0.0 K/mm3 09/15/21 05:00 WBC Morphology Not Reportable 09/15/21 05:00 Hypersegmented Neuts Not Reportable 09/15/21 05:00 Hyposegmented Neuts Not Reportable 09/15/21 05:00 Hypogranular Neuts Not Reportable 09/15/21 05:00 Smudge Cells Not Reportable 09/15/21 05:00 Toxic Granulation Not Reportable 09/15/21 05:00 Toxic Vacuolation Not Reportable 09/15/21 05:00 Dohle Bodies Not Reportable 09/15/21 05:00 Pelger-Huet Anomaly Not Reportable 09/15/21 05:00 Alex Rods Not Reportable 09/15/21 05:00 Platelet Estimate Consistent w auto 09/15/21 05:00 Clumped Platelets Not Reportable 09/15/21 05:00 Plt Clumps, EDTA Not Reportable 09/15/21 05:00 Large Platelets Not Reportable 09/15/21 05:00 Giant Platelets Not Reportable 09/15/21 05:00 Platelet Satelliting Not Reportable 09/15/21 05:00 Plt Morphology Comment Not Reportable 09/15/21 05:00 RBC Morphology Normal 09/15/21 05:00 Dimorphic RBCs Not Reportable 09/15/21 05:00 Polychromasia Not Reportable 09/15/21 05:00 Hypochromasia Not Reportable 09/15/21 05:00 Poikilocytosis Not Reportable 09/15/21 05:00 Anisocytosis Not Reportable 09/15/21 05:00 Microcytosis Not Reportable 09/15/21 05:00 Macrocytosis Not Reportable 09/15/21 05:00 Spherocytes Not Reportable 09/15/21 05:00 Pappenheimer Bodies Not Reportable 09/15/21 05:00 Sickle Cells Not Reportable 09/15/21 05:00 Target Cells Not Reportable 09/15/21 05:00 Tear Drop Cells Not Reportable 09/15/21 05:00 Ovalocytes Not Reportable 09/15/21 05:00 Helmet Cells Not Reportable 09/15/21 05:00 Vincent-[place] Bodies Not Reportable 09/15/21 05:00 [place] Rings Not Reportable 09/15/21 05:00 [place] Cells Not Reportable 09/15/21 05:00 Bite Cells Not Reportable 09/15/21 05:00 Crenated Cell Not Reportable 09/15/21 05:00 Elliptocytes Not Reportable 09/15/21 05:00 Acanthocytes (Spur) Not Reportable 09/15/21 05:00 Rouleaux Not Reportable 09/15/21 05:00 Hemoglobin C Crystals Not Reportable 09/15/21 05:00 Schistocytes Not Reportable 09/15/21 05:00 Malaria parasites Not Reportable 09/15/21 05:00 Ruy Bodies Not Reportable 09/15/21 05:00 Hem Pathologist Commnt No 09/15/21 05:00 PT 14.4 Sec. (12.2-14.9) 09/14/21 20:09 INR 1.01 (0.87-1.13) 09/14/21 20:09 APTT 38.4 Sec. (24.2-36.6) H 09/14/21 20:09 Thrombin Time 15.1 Sec. (15.1-19.6) 09/14/21 20:09 Sodium 135 mmol/L (137-145) L 09/15/21 05:00 Potassium 4.8 mmol/L (3.6-5.0) 09/15/21 05:00 Chloride 94.4 mmol/L (98-107) L 09/15/21 05:00 Carbon Dioxide 23 mmol/L (22-30) 09/15/21 05:00 Anion Gap 22 mmol/L 09/15/21 05:00 BUN 20 mg/dL (9-20) 09/15/21 05:00 Creatinine 0.7 mg/dL (0.8-1.3) L 09/15/21 05:00 Estimated GFR > 60 ml/min 09/15/21 05:00 BUN/Creatinine Ratio 29 % 09/15/21 05:00 Glucose 117 mg/dL (75-100) H 09/15/21 05:00 Lactic Acid 1.50 mmol/L (0.7-2.0) 09/15/21 05:00 Calcium 11.3 mg/dL (8.4-10.2) H 09/15/21 05:00 Total Bilirubin 0.50 mg/dL (0.1-1.2) 09/14/21 20:09 AST 34 units/L (5-40) 09/14/21 20:09 ALT 12 units/L (7-56) 09/14/21 20:09 Alkaline Phosphatase 124 units/L (35-129) 09/14/21 20:09 Total Creatine Kinase 125 units/L (55-170) 09/14/21 20:09 CK-MB (CK-2) 10.0 ng/mL (0.0-4.0) H 09/14/21 20:09 CK-MB (CK-2) Rel Index 8.0 (0-4) H 09/14/21 20:09 Troponin T < 0.010 ng/mL (0.00-0.029) 09/14/21 20:09 Total Protein 8.3 g/dL (6.3-8.2) H 09/14/21 20:09 Albumin 3.6 g/dL (3.9-5) L 09/14/21 20:09 Albumin/Globulin Ratio 0.8 % 09/14/21 20:09 Triglycerides 105 mg/dL (2-149) 09/15/21 05:00 Cholesterol 194 mg/dL (50-199) 09/15/21 05:00 LDL Cholesterol Direct 122 mg/dL (50-130) 09/15/21 05:00 HDL Cholesterol 45 mg/dL (40-59) 09/15/21 05:00 Cholesterol/HDL Ratio 4.31 % 09/15/21 05:00 Past History Past Medical History: seizures, stroke, other (Lung cancer) Medications and Allergies Allergies Allergy/AdvReac Type Severity Reaction Status Date / Time No Known Allergies Allergy Verified 07/07/21 14:59 Home Medications Medication Instructions Recorded Confirmed Last Taken Type dexAMETHasone [Decadron] 4 mg PO Q6H 7 Days #28 tablet 07/07/21 Unknown Rx levETIRAcetam [Keppra TAB] 500 mg PO BID #60 tablet 07/07/21 Unknown Rx Active Meds: Active Medications Acetaminophen (Acetaminophen 325 Mg Tab) 650 mg PO Q4H PRN PRN Reason: Pain MILD(1-3)/Fever >100.5/WEBSTER Albuterol (Albuterol 2.5 Mg/3 Ml Nebu) 2.5 mg IH Q4HRT PRN PRN Reason: Shortness Of Breath Albuterol/Ipratropium (Ipratropium/Albuterol Sulfate 3 Ml Ampul.Neb) 1 ampul IH Q6HRT [facility] Last Admin: 09/15/21 12:57 Dose: Not Given Documented by: Atorvastatin Calcium (Atorvastatin 40 Mg Tab) 40 mg PO QHS [facility] Last Admin: 09/15/21 00:31 Dose: Not Given Documented by: Famotidine (Famotidine 20 Mg/2 Ml Inj) 20 mg IV BID [facility] Last Admin: 09/15/21 10:19 Dose: 20 mg Documented by: Hydromorphone HCl (Hydromorphone 1 Mg/1 Ml Inj) 0.5 mg IV Q3H PRN PRN Reason: Pain , Severe (7-10) Dextrose/Sodium Chloride (D5ns) 1,000 mls @ 100 mls/hr IV DIRECT ALEXX Last Admin: 09/15/21 00:47 Dose: 100 mls/hr Documented by: Levetiracetam 500 mg/ Dextrose 105 mls @ 400 mls/hr IV Q12HR ALEXX Ceftriaxone Sodium (Rocephin/Ns 1 Gm/50 Ml) 1 gm in 50 mls @ 100 mls/hr IV Q24HR@2200 ALEXX; Protocol Stop: 09/18/21 22:29 Last Admin: 09/15/21 00:46 Dose: 100 mls/hr Documented by: Labetalol HCl (Labetalol 20 Mg/4 Ml Inj) 10 mg IV Q5MIN PRN PRN Reason: to maintain SBP < 180 Lorazepam (Lorazepam 2 Mg/Ml Vial) 1 mg IV Q4H PRN PRN Reason: Seizures Last Admin: 09/15/21 05:31 Dose: 1 mg Documented by: Lorazepam (Lorazepam 2 Mg/Ml Vial) 1 mg IV ONCE PRN PRN Reason: For sedation for MRI Stop: 09/15/21 17:30 Metoprolol Tartrate (Metoprolol Tartrate 5 Mg/5 Ml Inj) 5 mg IV Q6H PRN PRN Reason: Tachycardia Morphine Sulfate (Morphine 2 Mg/1 Ml Inj) 2 mg IV Q4H PRN PRN Reason: Pain, Moderate (4-6) Last Admin: 09/15/21 04:40 Dose: 2 mg Documented by: Ondansetron HCl (Ondansetron 4 Mg/2 Ml Inj) 4 mg IV Q8H PRN PRN Reason: Nausea And Vomiting Sodium Chloride (Sodium Chloride 0.9% 10 Ml Flush Syringe) 10 ml IV BID [facility] Last Admin: 09/15/21 10:19 Dose: 10 ml Documented by: Sodium Chloride (Sodium Chloride 0.9% 10 Ml Flush Syringe) 10 ml IV PRN PRN PRN Reason: LINE FLUSH Exam - Constitutional Vitals: Last Vital Signs Temp 97.7 F 09/14/21 20:28 Pulse 129 H 09/15/21 12:04 Resp 33 H 09/15/21 12:04 BP 133/72 09/15/21 12:04 Pulse Ox 97 09/15/21 12:04 Results - Labs lab Results: Laboratory Results - last 24 hr 09/14/21 09/14/21 09/14/21 20:09 20:09 20:09 WBC 13.9 H RBC 4.40 Hgb 12.5 Hct 38.5 MCV 87 MCH 29 MCHC 33 RDW 14.1 Plt Count 435 Lymph % (Auto) 8.1 L [place] % (Auto) 6.2 Eos % (Auto) 0.5 Baso % (Auto) 1.9 H Lymph # (Auto) 1.1 L [place] # (Auto) 0.9 H Eos # (Auto) 0.1 Baso # (Auto) 0.3 H Add Manual Diff Total Counted Seg Neutrophils % 83.3 H Seg Neuts % (Manual) Lymphocytes % (Manual) Monocytes % (Manual) Nucleated RBC % Seg Neutrophils # 11.6 H Seg Neutrophils # Man Band Neutrophils # Lymphocytes # (Manual) Abs React Lymphs (Man) Monocytes # (Manual) Eosinophils # (Manual) Basophils # (Manual) Metamyelocytes # Myelocytes # Promyelocytes # Blast Cells # WBC Morphology Hypersegmented Neuts Hyposegmented Neuts Hypogranular Neuts Smudge Cells Toxic Granulation Toxic Vacuolation Dohle Bodies Pelger-Huet Anomaly Alex Rods Platelet Estimate Clumped Platelets Plt Clumps, EDTA Large Platelets Giant Platelets Platelet Satelliting Plt Morphology Comment RBC Morphology Dimorphic RBCs Polychromasia Hypochromasia Poikilocytosis Anisocytosis Microcytosis Macrocytosis Spherocytes Pappenheimer Bodies Sickle Cells Target Cells Tear Drop Cells Ovalocytes Helmet Cells Vincent-[place] Bodies [place] Rings Heladio Cells Bite Cells Crenated Cell Elliptocytes Acanthocytes (Spur) Rouleaux Hemoglobin C Crystals Schistocytes Malaria parasites Ruy Bodies Hem Pathologist Commnt PT 14.4 INR 1.01 APTT 38.4 H Thrombin Time 15.1 Sodium 133 L Potassium 4.3 Chloride 93.5 L Carbon Dioxide 21 L Anion Gap 23 BUN 20 Creatinine 0.8 Estimated GFR > 60 BUN/Creatinine Ratio 25 Glucose 97 Lactic Acid Calcium 11.0 H Total Bilirubin 0.50 AST 34 ALT 12 Alkaline Phosphatase 124 Total Creatine Kinase 125 CK-MB (CK-2) 10.0 H CK-MB (CK-2) Rel Index 8.0 H Troponin T < 0.010 Total Protein 8.3 H Albumin 3.6 L Albumin/Globulin Ratio 0.8 Triglycerides Cholesterol LDL Cholesterol Direct HDL Cholesterol Cholesterol/HDL Ratio 09/15/21 09/15/21 09/15/21 05:00 05:00 05:00 WBC 18.0 H RBC 4.46 Hgb 13.0 Hct 39.1 MCV 88 MCH 29 MCHC 33 RDW 14.2 Plt Count 406 Lymph % (Auto) [place] % (Auto) Eos % (Auto) Baso % (Auto) Lymph # (Auto) [place] # (Auto) Eos # (Auto) Baso # (Auto) Add Manual Diff Complete Total Counted 100 Seg Neutrophils % Rocket Engine Component Mechanic Seg Neuts % (Manual) 91.0 H Lymphocytes % (Manual) 7.0 L Monocytes % (Manual) 2.0 Nucleated RBC % Not Reportable Seg Neutrophils # Seg Neutrophils # Man 16.4 H Band Neutrophils # 0.0 Lymphocytes # (Manual) 1.3 Abs React Lymphs (Man) 0.0 Monocytes # (Manual) 0.4 Eosinophils # (Manual) 0.0 Basophils # (Manual) 0.0 Metamyelocytes # 0.0 Myelocytes # 0.0 Promyelocytes # 0.0 Blast Cells # 0.0 WBC Morphology Not Reportable Hypersegmented Neuts Not Reportable Hyposegmented Neuts Not Reportable Hypogranular Neuts Not Reportable Smudge Cells Not Reportable Toxic Granulation Not Reportable Toxic Vacuolation Not Reportable Dohle Bodies Not Reportable Pelger-Huet Anomaly Not Reportable Alex Rods Not Reportable Platelet Estimate Consistent w auto Clumped Platelets Not Reportable Plt Clumps, EDTA Not Reportable Large Platelets Not Reportable Giant Platelets Not Reportable Platelet Satelliting Not Reportable Plt Morphology Comment Not Reportable RBC Morphology Normal Dimorphic RBCs Not Reportable Polychromasia Not Reportable Hypochromasia Not Reportable Poikilocytosis Not Reportable Anisocytosis Not Reportable Microcytosis Not Reportable Macrocytosis Not Reportable Spherocytes Not Reportable Pappenheimer Bodies Not Reportable Sickle Cells Not Reportable Target Cells Not Reportable Tear Drop Cells Not Reportable Ovalocytes Not Reportable Helmet Cells Not Reportable Vincent-[place] Bodies Not Reportable [place] Rings Not Reportable [place] Cells Not Reportable Bite Cells Not Reportable Crenated Cell Not Reportable Elliptocytes Not Reportable Acanthocytes (Spur) Not Reportable Rouleaux Not Reportable Hemoglobin C Crystals Not Reportable Schistocytes Not Reportable Malaria parasites Not Reportable Ruy Bodies Not Reportable Hem Pathologist Commnt No PT INR APTT Thrombin Time Sodium 135 L Potassium 4.8 Chloride 94.4 L Carbon Dioxide 23 Anion Gap 22 BUN 20 Creatinine 0.7 L Estimated GFR > 60 BUN/Creatinine Ratio 29 Glucose 117 H Lactic Acid 1.50 Calcium 11.3 H Total Bilirubin AST ALT Alkaline Phosphatase Total Creatine Kinase CK-MB (CK-2) CK-MB (CK-2) Rel Index Troponin T Total Protein Albumin Albumin/Globulin Ratio Triglycerides 105 Cholesterol 194 LDL Cholesterol Direct 122 HDL Cholesterol 45 Cholesterol/HDL Ratio 4.31
[2021-09-15] MEDS: levETIRAcetam 500 MG in DEXTROSE 5% IN WATER 100 ML IV SCH ×2 (17:06→21:45)
[2021-09-16] MEDS: IPRATROPIUM/ALBUTEROL SULFATE 3 ML AMPUL.NEB IH SCH ×4 (03:11→23:07)
[2021-09-16] MEDS: D5W/0.9% NACL 1,000 ML IV SCH (05:57)
[2021-09-16 06:22] LABS: Hematocrit 37.7 % (35.5-45.6); Hemoglobin 12.3 gm/dl (11.8-15.2); Mean Corpuscular HGB Conc 33 % (32-34); Mean Corpuscular Volume 89 fl (84-94); Platelet Count 459 K/mm3 (140-440); Red Blood Count 4.27 M/mm3 (3.65-5.03); Red Cell Distribution Width 14.4 % (13.2-15.2)
[2021-09-16 06:25] LABS: Blood Urea Nitrogen 19 mg/dL (9-20); Calcium 10.8 mg/dL (8.4-10.2); Hemolysis Index 61
[2021-09-16 06:26] LABS: BUN/Creatinine Ratio 32
--- NOTE | 2021-09-16 08:16 | Progress Note ---
Assessment and Plan Assessment and plan: -- Brain metastasis Status: Acute Admit the patient to the medical telemetry. NPO. IV fluid D5 normal saline at the rate of 100 cc/h. MRI of the brain and MRA of the brain and neck with and without contrast. PT OT speech evaluation. Neurology evaluation. Prognosis is guarded. --Altered mental status/metabolic encephalopathy Status: Acute Secondary to brain mets. NPO. IV fluid D5 normal saline at the rate of 100 cc/h. MRI of the brain and MRA of the brain and neck with and without contrast. PT OT speech evaluation. Neurology evaluation. Prognosis is guarded. --History of lung cancer Status: Acute Patient has history of lung cancer with diffuse brain mets. Will consult onc ology. Prognosis is guarded --History of seizure Status: Acute Patient has history of seizure. Seizure precautions Keppra 500 mg IV every 12 hours. Neurology evaluation --Sinus tachycardia Status: Acute Lopressor 5 mg IV every 6 hours as needed. Echocardiogram. Consult cardiology if needed -- DVT prophylaxis Status: Acute SCD for DVT prophylaxis because of brain mets. Pepcid 20 mg IV every 12 hours for GI prophylaxis. Patient is a full code We will closely monitor patient and adjust management as needed Plan of care reviewed with the patient and his nurse 09/15/21 Patient with history of lung cancer with brain mets. Presents with altered mental status, non verbal. CT shows Brain mets with progression of disease. For MRI Brain today. Neurology consulted Will also consult Dr. Gamez, Hematology/Oncologist 09/16/2021; neuro work-up is still pending, patient is severely hypoxic Poor prognosis, full CODE STATUS, water resource consultant recommendations noted and perfecto akbar History Interval history: I have seen and examined the patient at the bedside Patient's chart and medications reviewed Patient is in mild distress on BiPAP, complains of shortness of breath Vital signs noted Hospitalist Physical - Constitutional Vitals: Temp Pulse Resp BP Pulse Ox 99.3 F 123 H 20 198/115 95 09/16/21 04:34 09/16/21 04:34 09/16/21 04:34 09/16/21 04:34 09/16/21 04:34 General appearance: Present: no acute distress, well-nourished - EENT Eyes: Present: PERRL, EOM intact - Neck Neck: Present: supple, normal ROM - Respiratory Respiratory effort: normal Respiratory: bilateral: diminished, negative: rales, rhonchi, wheezing - Cardiovascular Rhythm: regular Heart Sounds: Present: S1 & S2 - Extremities Extremities: no ischemia, No edema - Abdominal General gastrointestinal: soft, non-tender, non-distended, normal bowel sounds - Integumentary Integumentary: Present: clear, warm - Psychiatric Psychiatric: appropriate mood/affect, agitated - Neurologic Neurologic: moves all extremities HEART Score - HEART Score Troponin: Troponin T < 0.010 ng/mL (0.00-0.029) 09/14/21 20:09 Results - Labs CBC & Chem 7: 09/16/21 05:19 09/16/21 05:19 Labs: Laboratory Last Values WBC 19.1 K/mm3 (4.5-11.0) H 09/16/21 05:19 RBC 4.27 M/mm3 (3.65-5.03) 09/16/21 05:19 Hgb 12.3 gm/dl (11.8-15.2) 09/16/21 05:19 Hct 37.7 % (35.5-45.6) 09/16/21 05:19 MCV 89 fl (84-94) 09/16/21 05:19 MCH 29 pg (28-32) 09/16/21 05:19 MCHC 33 % (32-34) 09/16/21 05:19 RDW 14.4 % (13.2-15.2) 09/16/21 05:19 Plt Count 459 K/mm3 (140-440) H 09/16/21 05:19 Lymph % (Auto) 8.1 % (13.4-35.0) L 09/14/21 20:09 [place] % (Auto) 6.2 % (0.0-7.3) 09/14/21 20:09 Eos % (Auto) 0.5 % (0.0-4.3) 09/14/21 20:09 Baso % (Auto) 1.9 % (0.0-1.8) H 09/14/21 20:09 Lymph # (Auto) 1.1 K/mm3 (1.2-5.4) L 09/14/21 20:09 [place] # (Auto) 0.9 K/mm3 (0.0-0.8) H 09/14/21 20:09 Eos # (Auto) 0.1 K/mm3 (0.0-0.4) 09/14/21 20:09 Baso # (Auto) 0.3 K/mm3 (0.0-0.1) H 09/14/21 20:09 Add Manual Diff Complete 09/15/21 05:00 Total Counted 100 09/15/21 05:00 Seg Neutrophils % Welding Tester 09/15/21 05:00 Seg Neuts % (Manual) 91.0 % (40.0-70.0) H 09/15/21 05:00 Lymphocytes % (Manual) 7.0 % (13.4-35.0) L 09/15/21 05:00 Monocytes % (Manual) 2.0 % (0.0-7.3) 09/15/21 05:00 Nucleated RBC % Not Reportable 09/15/21 05:00 Seg Neutrophils # 11.6 K/mm3 (1.8-7.7) H 09/14/21 20:09 Seg Neutrophils # Man 16.4 K/mm3 (1.8-7.7) H 09/15/21 05:00 Band Neutrophils # 0.0 K/mm3 09/15/21 05:00 Lymphocytes # (Manual) 1.3 K/mm3 (1.2-5.4) 09/15/21 05:00 Abs React Lymphs (Man) 0.0 K/mm3 09/15/21 05:00 Monocytes # (Manual) 0.4 K/mm3 (0.0-0.8) 09/15/21 05:00 Eosinophils # (Manual) 0.0 K/mm3 (0.0-0.4) 09/15/21 05:00 Basophils # (Manual) 0.0 K/mm3 (0.0-0.1) 09/15/21 05:00 Metamyelocytes # 0.0 K/mm3 09/15/21 05:00 Myelocytes # 0.0 K/mm3 09/15/21 05:00 Promyelocytes # 0.0 K/mm3 09/15/21 05:00 Blast Cells # 0.0 K/mm3 09/15/21 05:00 WBC Morphology Not Reportable 09/15/21 05:00 Hypersegmented Neuts Not Reportable 09/15/21 05:00 Hyposegmented Neuts Not Reportable 09/15/21 05:00 Hypogranular Neuts Not Reportable 09/15/21 05:00 Smudge Cells Not Reportable 09/15/21 05:00 Toxic Granulation Not Reportable 09/15/21 05:00 Toxic Vacuolation Not Reportable 09/15/21 05:00 Dohle Bodies Not Reportable 09/15/21 05:00 Pelger-Huet Anomaly Not Reportable 09/15/21 05:00 Alex Rods Not Reportable 09/15/21 05:00 Platelet Estimate Consistent w auto 09/15/21 05:00 Clumped Platelets Not Reportable 09/15/21 05:00 Plt Clumps, EDTA Not Reportable 09/15/21 05:00 Large Platelets Not Reportable 09/15/21 05:00 Giant Platelets Not Reportable 09/15/21 05:00 Platelet Satelliting Not Reportable 09/15/21 05:00 Plt Morphology Comment Not Reportable 09/15/21 05:00 RBC Morphology Normal 09/15/21 05:00 Dimorphic RBCs Not Reportable 09/15/21 05:00 Polychromasia Not Reportable 09/15/21 05:00 Hypochromasia Not Reportable 09/15/21 05:00 Poikilocytosis Not Reportable 09/15/21 05:00 Anisocytosis Not Reportable 09/15/21 05:00 Microcytosis Not Reportable 09/15/21 05:00 Macrocytosis Not Reportable 09/15/21 05:00 Spherocytes Not Reportable 09/15/21 05:00 Pappenheimer Bodies Not Reportable 09/15/21 05:00 Sickle Cells Not Reportable 09/15/21 05:00 Target Cells Not Reportable 09/15/21 05:00 Tear Drop Cells Not Reportable 09/15/21 05:00 Ovalocytes Not Reportable 09/15/21 05:00 Helmet Cells Not Reportable 09/15/21 05:00 Vincent-[place] Bodies Not Reportable 09/15/21 05:00 [place] Rings Not Reportable 09/15/21 05:00 [place] Cells Not Reportable 09/15/21 05:00 Bite Cells Not Reportable 09/15/21 05:00 Crenated Cell Not Reportable 09/15/21 05:00 Elliptocytes Not Reportable 09/15/21 05:00 Acanthocytes (Spur) Not Reportable 09/15/21 05:00 Rouleaux Not Reportable 09/15/21 05:00 Hemoglobin C Crystals Not Reportable 09/15/21 05:00 Schistocytes Not Reportable 09/15/21 05:00 Malaria parasites Not Reportable 09/15/21 05:00 Ruy Bodies Not Reportable 09/15/21 05:00 Hem Pathologist Commnt No 09/15/21 05:00 PT 14.4 Sec. (12.2-14.9) 09/14/21 20:09 INR 1.01 (0.87-1.13) 09/14/21 20:09 APTT 38.4 Sec. (24.2-36.6) H 09/14/21 20:09 Thrombin Time 15.1 Sec. (15.1-19.6) 09/14/21 20:09 Sodium 140 mmol/L (137-145) 09/16/21 05:19 Potassium 4.7 mmol/L (3.6-5.0) 09/16/21 05:19 Chloride 100.7 mmol/L (98-107) 09/16/21 05:19 Carbon Dioxide 24 mmol/L (22-30) 09/16/21 05:19 Anion Gap 20 mmol/L 09/16/21 05:19 BUN 19 mg/dL (9-20) 09/16/21 05:19 Creatinine 0.6 mg/dL (0.8-1.3) L 09/16/21 05:19 Estimated GFR > 60 ml/min 09/16/21 05:19 BUN/Creatinine Ratio 32 % 09/16/21 05:19 Glucose 128 mg/dL (75-100) H 09/16/21 05:19 Lactic Acid 1.50 mmol/L (0.7-2.0) 09/15/21 05:00 Calcium 10.8 mg/dL (8.4-10.2) H 09/16/21 05:19 Total Bilirubin 0.50 mg/dL (0.1-1.2) 09/14/21 20:09 AST 34 units/L (5-40) 09/14/21 20:09 ALT 12 units/L (7-56) 09/14/21 20:09 Alkaline Phosphatase 124 units/L (35-129) 09/14/21 20:09 Total Creatine Kinase 125 units/L (55-170) 09/14/21 20:09 CK-MB (CK-2) 10.0 ng/mL (0.0-4.0) H 09/14/21 20:09 CK-MB (CK-2) Rel Index 8.0 (0-4) H 09/14/21 20:09 Troponin T < 0.010 ng/mL (0.00-0.029) 09/14/21 20:09 Total Protein 8.3 g/dL (6.3-8.2) H 09/14/21 20:09 Albumin 3.6 g/dL (3.9-5) L 09/14/21 20:09 Albumin/Globulin Ratio 0.8 % 09/14/21 20:09 Triglycerides 105 mg/dL (2-149) 09/15/21 05:00 Cholesterol 194 mg/dL (50-199) 09/15/21 05:00 LDL Cholesterol Direct 122 mg/dL (50-130) 09/15/21 05:00 HDL Cholesterol 45 mg/dL (40-59) 09/15/21 05:00 Cholesterol/HDL Ratio 4.31 % 09/15/21 05:00 Alaniz/IV: Voiding Method Condom Catheter Active Medications - Current Medications Current Medications: Generic Name Dose Route Start Last Admin Trade Name Freq PRN Reason Stop Dose Admin Acetaminophen 650 mg 09/14/21 21:42 Acetaminophen 325 Mg Tab PO Q4H PRN Pain MILD(1-3)/Fever >100.5/WEBSTER Albuterol 2.5 mg 09/14/21 21:42 Albuterol 2.5 Mg/3 Ml Nebu IH Q4HRT PRN Shortness Of Breath Albuterol/Ipratropium 1 ampul 09/15/21 02:00 09/16/21 03:11 Ipratropium/Albuterol Sulfate 3 Ml Ampul.Neb IH Not Given Q6HRT ALEXX Atorvastatin Calcium 40 mg 09/14/21 22:00 09/15/21 22:14 Atorvastatin 40 Mg Tab PO Not Given QHS ALEXX Famotidine 20 mg 09/14/21 22:00 09/15/21 22:14 Famotidine 20 Mg/2 Ml Inj IV 20 mg BID ALEXX Administration Hydromorphone HCl 0.5 mg 09/14/21 21:42 Hydromorphone 1 Mg/1 Ml Inj IV Q3H PRN Pain , Severe (7-10) Dextrose/Sodium Chloride 1,000 mls @ 100 mls/hr 09/14/21 22:00 09/16/21 05:57 D5ns IV 100 mls/hr DIRECT ALEXX Administration Levetiracetam 500 mg/ Dextrose 105 mls @ 400 mls/hr 09/15/21 10:00 09/15/21 21:45 IV 400 mls/hr Q12HR ALEXX Administration Ceftriaxone Sodium 1 gm in 50 mls @ 100 mls/hr 09/14/21 23:00 09/15/21 22:14 Rocephin/Ns 1 Gm/50 Ml IV 09/18/21 22:29 100 mls/hr Q24HR@2200 ALEXX Administration Protocol Labetalol HCl 10 mg 09/14/21 21:42 Labetalol 20 Mg/4 Ml Inj IV Q5MIN PRN to maintain SBP < 180 Lorazepam 1 mg 09/15/21 00:35 09/15/21 18:30 Lorazepam 2 Mg/Ml Vial IV 1 mg Q4H PRN Administration Seizures Metoprolol Tartrate 5 mg 09/14/21 21:56 Metoprolol Tartrate 5 Mg/5 Ml Inj IV Q6H PRN Tachycardia Morphine Sulfate 2 mg 09/14/21 21:42 09/15/21 18:30 Morphine 2 Mg/1 Ml Inj IV 2 mg Q4H PRN Administration Pain, Moderate (4-6) Ondansetron HCl 4 mg 09/14/21 21:42 Ondansetron 4 Mg/2 Ml Inj IV Q8H PRN Nausea And Vomiting Sodium Chloride 10 ml 09/14/21 22:00 09/15/21 22:14 Sodium Chloride 0.9% 10 Ml Flush Syringe IV 10 ml BID ALEXX Administration Sodium Chloride 10 ml 09/14/21 21:42 Sodium Chloride 0.9% 10 Ml Flush Syringe IV PRN PRN LINE FLUSH
[2021-09-16] MEDS: levETIRAcetam 500 MG in DEXTROSE 5% IN WATER 100 ML IV SCH ×2 (09:33→21:45)
[2021-09-16] MEDS: FAMOTIDINE 20 MG/2 ML INJ IV SCH ×2 (09:34→21:48)
[2021-09-16] MEDS: MORPHINE 2 MG/1 ML INJ IV PRN ×2 (09:34→13:59)
[2021-09-16] MEDS: LORazepam 2 MG/ML VIAL IV PRN ×2 (09:34→13:59)
[2021-09-16] MEDS: cefTRIAXone/NS 1 GM/50 ML 1 GM/50 ML BAG IV SCH (21:50)
[2021-09-17] MEDS: D5W/0.9% NACL 1,000 ML IV SCH (02:27)
[2021-09-17] MEDS: MORPHINE 2 MG/1 ML INJ IV PRN ×3 (08:00→19:11)
[2021-09-17] MEDS: LORazepam 2 MG/ML VIAL IV PRN ×3 (08:00→17:00)
--- NOTE | 2021-09-17 09:05 | Hem/Onc Consultation ---
History of Present Illness - History of Present Illness heme consult no televisit done because cart not available COT [id number] 50yo disabled man with metastatic cancer (details unavailable) adm for L weakness found to have brain tumors and hypoxia. has been confused Data reviewed below CXR c/w L pl effusion.opacity Chest CT 06/2021: c/w L lung tumor, metastatic tumors brain CT 06/2021: c/w metastatic ca IMP: metastatic lung cancer affecting brain hypoxia could be due to tumors or PE or infection REC: steroid pulse IV Abx prescribed low dose lovenox end of life discussion, transition to hospice Active Medications Acetaminophen (Acetaminophen 325 Mg Tab) 650 mg PO Q4H PRN PRN Reason: Pain MILD(1-3)/Fever >100.5/WEBSTER Albuterol (Albuterol 2.5 Mg/3 Ml Nebu) 2.5 mg IH Q4HRT PRN PRN Reason: Shortness Of Breath Albuterol/Ipratropium (Ipratropium/Albuterol Sulfate 3 Ml Ampul.Neb) 1 ampul IH Q6HRT [facility] Last Admin: 09/16/21 23:07 Dose: Not Given Documented by: Atorvastatin Calcium (Atorvastatin 40 Mg Tab) 40 mg PO QHS [facility] Last Admin: 09/16/21 21:48 Dose: Not Given Documented by: Famotidine (Famotidine 20 Mg/2 Ml Inj) 20 mg IV BID [facility] Last Admin: 09/16/21 21:48 Dose: 20 mg Documented by: Hydromorphone HCl (Hydromorphone 1 Mg/1 Ml Inj) 0.5 mg IV Q3H PRN PRN Reason: Pain , Severe (7-10) Dextrose/Sodium Chloride (D5ns) 1,000 mls @ 100 mls/hr IV DIRECT [facility] Last Admin: 09/17/21 02:27 Dose: 100 mls/hr Documented by: Levetiracetam 500 mg/ Dextrose 105 mls @ 400 mls/hr IV Q12HR [facility] Last Admin: 09/16/21 21:45 Dose: 400 mls/hr Documented by: Ceftriaxone Sodium (Rocephin/Ns 1 Gm/50 Ml) 1 gm in 50 mls @ 100 mls/hr IV Q24HR@2200 [facility]; Protocol Stop: 09/18/21 22:29 Last Admin: 09/16/21 21:50 Dose: 100 mls/hr Documented by: Labetalol HCl (Labetalol 20 Mg/4 Ml Inj) 10 mg IV Q5MIN PRN PRN Reason: to maintain SBP < 180 Metoprolol Tartrate (Metoprolol Tartrate 5 Mg/5 Ml Inj) 5 mg IV Q6H PRN PRN Reason: Tachycardia Morphine Sulfate (Morphine 2 Mg/1 Ml Inj) 2 mg IV Q4H PRN PRN Reason: Pain, Moderate (4-6) end of life discussion Laboratory Last Values WBC 19.1 K/mm3 (4.5-11.0) H 09/16/21 05:19 Hgb 12.3 gm/dl (11.8-15.2) 09/16/21 05:19 Hct 37.7 % (35.5-45.6) 09/16/21 05:19 Plt Count 459 K/mm3 (140-440) H 09/16/21 05:19 Seg Neuts % (Manual) 91.0 % (40.0-70.0) H 09/15/21 05:00 PT 14.4 Sec. (12.2-14.9) 09/14/21 20:09 INR 1.01 (0.87-1.13) 09/14/21 20:09 APTT 38.4 Sec. (24.2-36.6) H 09/14/21 20:09 Thrombin Time 15.1 Sec. (15.1-19.6) 09/14/21 20:09 Calcium 10.8 mg/dL (8.4-10.2) H 09/16/21 05:19 Total Bilirubin 0.50 mg/dL (0.1-1.2) 09/14/21 20:09 AST 34 units/L (5-40) 09/14/21 20:09 ALT 12 units/L (7-56) 09/14/21 20:09 Alkaline Phosphatase 124 units/L (35-129) 09/14/21 20:09 Total Creatine Kinase 125 units/L (55-170) 09/14/21 20:09 HDL Cholesterol 45 mg/dL (40-59) 09/15/21 05:00 Cholesterol/HDL Ratio 4.31 % 09/15/21 05:00 Past History Past Medical History: seizures, stroke, other (Lung cancer) Medications and Allergies Allergies Allergy/AdvReac Type Severity Reaction Status Date / Time No Known Allergies Allergy Verified 07/07/21 14:59 Home Medications Medication Instructions Recorded Confirmed Last Taken Type dexAMETHasone [Decadron] 4 mg PO Q6H 7 Days #28 tablet 07/07/21 Unknown Rx levETIRAcetam [Keppra TAB] 500 mg PO BID #60 tablet 07/07/21 Unknown Rx Active Meds: Active Medications Acetaminophen (Acetaminophen 325 Mg Tab) 650 mg PO Q4H PRN PRN Reason: Pain MILD(1-3)/Fever >100.5/WEB[place] Albuterol (Albuterol 2.5 Mg/3 Ml Nebu) 2.5 mg IH Q4HRT PRN PRN Reason: Shortness Of Breath Albuterol/Ipratropium (Ipratropium/Albuterol Sulfate 3 Ml Ampul.Neb) 1 ampul IH Q6HRT [facility] Last Admin: 09/16/21 23:07 Dose: Not Given Documented by: Atorvastatin Calcium (Atorvastatin 40 Mg Tab) 40 mg PO QHS [facility] Last Admin: 09/16/21 21:48 Dose: Not Given Documented by: Famotidine (Famotidine 20 Mg/2 Ml Inj) 20 mg IV BID [facility] Last Admin: 09/16/21 21:48 Dose: 20 mg Documented by: Hydromorphone HCl (Hydromorphone 1 Mg/1 Ml Inj) 0.5 mg IV Q3H PRN PRN Reason: Pain , Severe (7-10) Dextrose/Sodium Chloride (D5ns) 1,000 mls @ 100 mls/hr IV DIRECT [facility] Last Admin: 09/17/21 02:27 Dose: 100 mls/hr Documented by: Levetiracetam 500 mg/ Dextrose 105 mls @ 400 mls/hr IV Q12HR [facility] Last Admin: 09/16/21 21:45 Dose: 400 mls/hr Documented by: Ceftriaxone Sodium (Rocephin/Ns 1 Gm/50 Ml) 1 gm in 50 mls @ 100 mls/hr IV Q24HR@2200 [facility]; Protocol Stop: 09/18/21 22:29 Last Admin: 09/16/21 21:50 Dose: 100 mls/hr Documented by: Labetalol HCl (Labetalol 20 Mg/4 Ml Inj) 10 mg IV Q5MIN PRN PRN Reason: to maintain SBP < 180 Lorazepam (Lorazepam 2 Mg/Ml Vial) 1 mg IV Q4H PRN PRN Reason: Seizures Last Admin: 09/16/21 13:59 Dose: 1 mg Documented by: Metoprolol Tartrate (Metoprolol Tartrate 5 Mg/5 Ml Inj) 5 mg IV Q6H PRN PRN Reason: Tachycardia Morphine Sulfate (Morphine 2 Mg/1 Ml Inj) 2 mg IV Q4H PRN PRN Reason: Pain, Moderate (4-6) Last Admin: 09/16/21 13:59 Dose: 2 mg Documented by: Ondansetron HCl (Ondansetron 4 Mg/2 Ml Inj) 4 mg IV Q8H PRN PRN Reason: Nausea And Vomiting Sodium Chloride (Sodium Chloride 0.9% 10 Ml Flush Syringe) 10 ml IV BID [facility] Last Admin: 09/16/21 21:49 Dose: 10 ml Documented by: Sodium Chloride (Sodium Chloride 0.9% 10 Ml Flush Syringe) 10 ml IV PRN PRN PRN Reason: LINE FLUSH Exam - Constitutional Vitals: Last Vital Signs Temp 97.7 F 09/17/21 07:07 Pulse 111 H 09/17/21 07:07 Resp 26 H 09/17/21 07:07 BP 153/97 09/17/21 07:07 Pulse Ox 100 09/17/21 07:07
--- NOTE | 2021-09-17 09:37 | Progress Note ---
Assessment and Plan Assessment and plan: -- Brain metastasis Status: Acute Admit the patient to the medical telemetry. NPO. IV fluid D5 normal saline at the rate of 100 cc/h. MRI of the brain and MRA of the brain and neck with and without contrast. PT OT speech evaluation. Neurology evaluation. Prognosis is guarded. --Altered mental status/metabolic encephalopathy Status: Acute Secondary to brain mets. NPO. IV fluid D5 normal saline at the rate of 100 cc/h. MRI of the brain and MRA of the brain and neck with and without contrast. PT OT speech evaluation. Neurology evaluation. Prognosis is guarded. --History of lung cancer Status: Acute Patient has history of lung cancer with diffuse brain mets. Will consult onc ology. Prognosis is guarded --History of seizure Status: Acute Patient has history of seizure. Seizure precautions Keppra 500 mg IV every 12 hours. Neurology evaluation --Sinus tachycardia Status: Acute Lopressor 5 mg IV every 6 hours as needed. Echocardiogram. Consult cardiology if needed --DNR status -- DVT prophylaxis Status: Acute SCD for DVT prophylaxis because of brain mets. Pepcid 20 mg IV every 12 hours for GI prophylaxis. Patient is a full code We will closely monitor patient and adjust management as needed Plan of care reviewed with the patient and his nurse 09/15/21 Patient with history of lung cancer with brain mets. Presents with altered ment al status, non verbal. CT shows Brain mets with progression of disease. For MRI Brain today. Neurology consulted Will also consult Dr. Gamez, Hematology/Oncologist 09/16/2021; neuro work-up is still pending, patient is severely hypoxic Poor prognosis, full CODE STATUS, merchandising consultant recommendations noted and appreciated 09/17/2021; I discussed with patient's brother Mr. Dov Fitzpatrick at [phone] patient's critical illness ,poor prognosis goals of treatment, And CODE STATUS, patient's brother was very emotional and requested DNR status, patient's nurse Ms. Whitney witnessed the brothers shoes Signed essential papers, patient is DNR status at this point. Nursing charge nurse informed History Interval history: I have seen and examined the patient at the bedside Patient's chart and medications reviewed Patient is in severe distress on BiPAP intermittent hypoxia And severe distress and critically ill Hospitalist Physical - Constitutional Vitals: Temp Pulse Resp BP Pulse Ox 97.7 F 111 H 26 H 153/97 100 09/17/21 07:07 09/17/21 07:07 09/17/21 07:07 09/17/21 07:07 09/17/21 07:07 General appearance: Present: severe distress, well-nourished, other - EENT Eyes: Present: PERRL, EOM intact - Neck Neck: Present: supple, normal ROM - Respiratory Respiratory effort: normal Respiratory: bilateral: diminished, rhonchi, negative: rales, wheezing - Cardiovascular Rhythm: regular Heart Sounds: Present: S1 & S2 - Extremities Extremities: no ischemia, No edema - Abdominal General gastrointestinal: soft, non-tender, non-distended, normal bowel sounds - Integumentary Integumentary: Present: clear, warm - Psychiatric Psychiatric: appropriate mood/affect, cooperative - Neurologic Neurologic: moves all extremities HEART Score - HEART Score Troponin: Troponin T < 0.010 ng/mL (0.00-0.029) 09/14/21 20:09 Results - Labs CBC & Chem 7: 09/16/21 05:19 09/16/21 05:19 Labs: Laboratory Last Values WBC 19.1 K/mm3 (4.5-11.0) H 09/16/21 05:19 RBC 4.27 M/mm3 (3.65-5.03) 09/16/21 05:19 Hgb 12.3 gm/dl (11.8-15.2) 09/16/21 05:19 Hct 37.7 % (35.5-45.6) 09/16/21 05:19 MCV 89 fl (84-94) 09/16/21 05:19 MCH 29 pg (28-32) 09/16/21 05:19 MCHC 33 % (32-34) 09/16/21 05:19 RDW 14.4 % (13.2-15.2) 09/16/21 05:19 Plt Count 459 K/mm3 (140-440) H 09/16/21 05:19 Lymph % (Auto) 8.1 % (13.4-35.0) L 09/14/21 20:09 [place] % (Auto) 6.2 % (0.0-7.3) 09/14/21 20:09 Eos % (Auto) 0.5 % (0.0-4.3) 09/14/21 20:09 Baso % (Auto) 1.9 % (0.0-1.8) H 09/14/21 20:09 Lymph # (Auto) 1.1 K/mm3 (1.2-5.4) L 09/14/21 20:09 [place] # (Auto) 0.9 K/mm3 (0.0-0.8) H 09/14/21 20:09 Eos # (Auto) 0.1 K/mm3 (0.0-0.4) 09/14/21 20:09 Baso # (Auto) 0.3 K/mm3 (0.0-0.1) H 09/14/21 20:09 Add Manual Diff Complete 09/15/21 05:00 Total Counted 100 09/15/21 05:00 Seg Neutrophils % Document Photographer 09/15/21 05:00 Seg Neuts % (Manual) 91.0 % (40.0-70.0) H 09/15/21 05:00 Lymphocytes % (Manual) 7.0 % (13.4-35.0) L 09/15/21 05:00 Monocytes % (Manual) 2.0 % (0.0-7.3) 09/15/21 05:00 Nucleated RBC % Not Reportable 09/15/21 05:00 Seg Neutrophils # 11.6 K/mm3 (1.8-7.7) H 09/14/21 20:09 Seg Neutrophils # Man 16.4 K/mm3 (1.8-7.7) H 09/15/21 05:00 Band Neutrophils # 0.0 K/mm3 09/15/21 05:00 Lymphocytes # (Manual) 1.3 K/mm3 (1.2-5.4) 09/15/21 05:00 Abs React Lymphs (Man) 0.0 K/mm3 09/15/21 05:00 Monocytes # (Manual) 0.4 K/mm3 (0.0-0.8) 09/15/21 05:00 Eosinophils # (Manual) 0.0 K/mm3 (0.0-0.4) 09/15/21 05:00 Basophils # (Manual) 0.0 K/mm3 (0.0-0.1) 09/15/21 05:00 Metamyelocytes # 0.0 K/mm3 09/15/21 05:00 Myelocytes # 0.0 K/mm3 09/15/21 05:00 Promyelocytes # 0.0 K/mm3 09/15/21 05:00 Blast Cells # 0.0 K/mm3 09/15/21 05:00 WBC Morphology Not Reportable 09/15/21 05:00 Hypersegmented Neuts Not Reportable 09/15/21 05:00 Hyposegmented Neuts Not Reportable 09/15/21 05:00 Hypogranular Neuts Not Reportable 09/15/21 05:00 Smudge Cells Not Reportable 09/15/21 05:00 Toxic Granulation Not Reportable 09/15/21 05:00 Toxic Vacuolation Not Reportable 09/15/21 05:00 Dohle Bodies Not Reportable 09/15/21 05:00 Pelger-Huet Anomaly Not Reportable 09/15/21 05:00 Alex Rods Not Reportable 09/15/21 05:00 Platelet Estimate Consistent w auto 09/15/21 05:00 Clumped Platelets Not Reportable 09/15/21 05:00 Plt Clumps, EDTA Not Reportable 09/15/21 05:00 Large Platelets Not Reportable 09/15/21 05:00 Giant Platelets Not Reportable 09/15/21 05:00 Platelet Satelliting Not Reportable 09/15/21 05:00 Plt Morphology Comment Not Reportable 09/15/21 05:00 RBC Morphology Normal 09/15/21 05:00 Dimorphic RBCs Not Reportable 09/15/21 05:00 Polychromasia Not Reportable 09/15/21 05:00 Hypochromasia Not Reportable 09/15/21 05:00 Poikilocytosis Not Reportable 09/15/21 05:00 Anisocytosis Not Reportable 09/15/21 05:00 Microcytosis Not Reportable 09/15/21 05:00 Macrocytosis Not Reportable 09/15/21 05:00 Spherocytes Not Reportable 09/15/21 05:00 Pappenheimer Bodies Not Reportable 09/15/21 05:00 Sickle Cells Not Reportable 09/15/21 05:00 Target Cells Not Reportable 09/15/21 05:00 Tear Drop Cells Not Reportable 09/15/21 05:00 Ovalocytes Not Reportable 09/15/21 05:00 Helmet Cells Not Reportable 09/15/21 05:00 [place] Bodies Not Reportable 09/15/21 05:00 [place] Rings Not Reportable 09/15/21 05:00 Heladio Cells Not Reportable 09/15/21 05:00 Bite Cells Not Reportable 09/15/21 05:00 Crenated Cell Not Reportable 09/15/21 05:00 Elliptocytes Not Reportable 09/15/21 05:00 Acanthocytes (Spur) Not Reportable 09/15/21 05:00 Rouleaux Not Reportable 09/15/21 05:00 Hemoglobin C Crystals Not Reportable 09/15/21 05:00 Schistocytes Not Reportable 09/15/21 05:00 Malaria parasites Not Reportable 09/15/21 05:00 Ruy Bodies Not Reportable 09/15/21 05:00 Hem Pathologist Commnt No 09/15/21 05:00 PT 14.4 Sec. (12.2-14.9) 09/14/21 20:09 INR 1.01 (0.87-1.13) 09/14/21 20:09 APTT 38.4 Sec. (24.2-36.6) H 09/14/21 20:09 Thrombin Time 15.1 Sec. (15.1-19.6) 09/14/21 20:09 Sodium 140 mmol/L (137-145) 09/16/21 05:19 Potassium 4.7 mmol/L (3.6-5.0) 09/16/21 05:19 Chloride 100.7 mmol/L (98-107) 09/16/21 05:19 Carbon Dioxide 24 mmol/L (22-30) 09/16/21 05:19 Anion Gap 20 mmol/L 09/16/21 05:19 BUN 19 mg/dL (9-20) 09/16/21 05:19 Creatinine 0.6 mg/dL (0.8-1.3) L 09/16/21 05:19 Estimated GFR > 60 ml/min 09/16/21 05:19 BUN/Creatinine Ratio 32 % 09/16/21 05:19 Glucose 128 mg/dL (75-100) H 09/16/21 05:19 Lactic Acid 1.50 mmol/L (0.7-2.0) 09/15/21 05:00 Calcium 10.8 mg/dL (8.4-10.2) H 09/16/21 05:19 Total Bilirubin 0.50 mg/dL (0.1-1.2) 09/14/21 20:09 AST 34 units/L (5-40) 09/14/21 20:09 ALT 12 units/L (7-56) 09/14/21 20:09 Alkaline Phosphatase 124 units/L (35-129) 09/14/21 20:09 Total Creatine Kinase 125 units/L (55-170) 09/14/21 20:09 CK-MB (CK-2) 10.0 ng/mL (0.0-4.0) H 09/14/21 20:09 CK-MB (CK-2) Rel Index 8.0 (0-4) H 09/14/21 20:09 Troponin T < 0.010 ng/mL (0.00-0.029) 09/14/21 20:09 Total Protein 8.3 g/dL (6.3-8.2) H 09/14/21 20:09 Albumin 3.6 g/dL (3.9-5) L 09/14/21 20:09 Albumin/Globulin Ratio 0.8 % 09/14/21 20:09 Triglycerides 105 mg/dL (2-149) 09/15/21 05:00 Cholesterol 194 mg/dL (50-199) 09/15/21 05:00 LDL Cholesterol Direct 122 mg/dL (50-130) 09/15/21 05:00 HDL Cholesterol 45 mg/dL (40-59) 09/15/21 05:00 Cholesterol/HDL Ratio 4.31 % 09/15/21 05:00 Alaniz/IV: Voiding Method Indwelling Catheter Active Medications - Current Medications Current Medications: Generic Name Dose Route Start Last Admin Trade Name Freq PRN Reason Stop Dose Admin Acetaminophen 650 mg 09/14/21 21:42 Acetaminophen 325 Mg Tab PO Q4H PRN Pain MILD(1-3)/Fever >100.5/WEBSTER Albuterol 2.5 mg 09/14/21 21:42 Albuterol 2.5 Mg/3 Ml Nebu IH Q4HRT PRN Shortness Of Breath Albuterol/Ipratropium 1 ampul 09/15/21 02:00 09/16/21 23:07 Ipratropium/Albuterol Sulfate 3 Ml Ampul.Neb IH Not Given Q6HRT [facility] Atorvastatin Calcium 40 mg 09/14/21 22:00 09/16/21 21:48 Atorvastatin 40 Mg Tab PO Not Given QHS [facility] Dexamethasone 10 mg 09/17/21 10:00 Dexamethasone 20 Mg/5 Ml Vial IV 09/20/21 10:01 QDAY [facility] Enoxaparin Sodium 40 mg 09/18/21 10:00 Enoxaparin 40 Mg/0.4 Ml Inj SUB-Q QDAY [facility] Protocol Famotidine 20 mg 09/14/21 22:00 09/16/21 21:48 Famotidine 20 Mg/2 Ml Inj IV 20 mg BID [facility] Administration Hydromorphone HCl 0.5 mg 09/14/21 21:42 Hydromorphone 1 Mg/1 Ml Inj IV Q3H PRN Pain , Severe (7-10) Dextrose/Sodium Chloride 1,000 mls @ 100 mls/hr 09/14/21 22:00 09/17/21 02:27 D5ns IV 100 mls/hr DIRECT [facility] Administration Levetiracetam 500 mg/ Dextrose 105 mls @ 400 mls/hr 09/15/21 10:00 09/16/21 21:45 IV 400 mls/hr Q12HR [facility] Administration Ceftriaxone Sodium 1 gm in 50 mls @ 100 mls/hr 09/14/21 23:00 09/16/21 21:50 Rocephin/Ns 1 Gm/50 Ml IV 09/18/21 22:29 100 mls/hr Q24HR@2200 [facility] Administration Protocol Labetalol HCl 10 mg 09/14/21 21:42 Labetalol 20 Mg/4 Ml Inj IV Q5MIN PRN to maintain SBP < 180 Lorazepam 1 mg 09/15/21 00:35 09/16/21 13:59 Lorazepam 2 Mg/Ml Vial IV 1 mg Q4H PRN Administration Seizures Metoprolol Tartrate 5 mg 09/14/21 21:56 Metoprolol Tartrate 5 Mg/5 Ml Inj IV Q6H PRN Tachycardia Morphine Sulfate 2 mg 09/14/21 21:42 09/16/21 13:59 Morphine 2 Mg/1 Ml Inj IV 2 mg Q4H PRN Administration Pain, Moderate (4-6) Ondansetron HCl 4 mg 09/14/21 21:42 Ondansetron 4 Mg/2 Ml Inj IV Q8H PRN Nausea And Vomiting Sodium Chloride 10 ml 09/14/21 22:00 09/16/21 21:49 Sodium Chloride 0.9% 10 Ml Flush Syringe IV 10 ml BID [facility] Administration Sodium Chloride 10 ml 09/14/21 21:42 Sodium Chloride 0.9% 10 Ml Flush Syringe IV PRN PRN LINE FLUSH
[2021-09-17] MEDS ORDERED: dexAMETHasone 10 MG in SODIUM CHLORIDE 0.9% 50 ML IV SCH (10:00)
[2021-09-17] MEDS: IPRATROPIUM/ALBUTEROL SULFATE 3 ML AMPUL.NEB IH SCH ×4 (10:28→23:27)
[2021-09-17] MEDS: FAMOTIDINE 20 MG/2 ML INJ IV SCH ×2 (13:47→22:51)
[2021-09-17] MEDS: dexAMETHasone 20 MG/5 ML VIAL IV SCH (13:47)
[2021-09-17] MEDS: levETIRAcetam 500 MG in DEXTROSE 5% IN WATER 100 ML IV SCH ×2 (13:47→22:51)
--- NOTE | 2021-09-17 15:20 | Event Note ---
I called patient's brother and next of kin Mr. Dov Blanton at [phone] and discussed Mr. Dov Garcia's critical condition, severe respiratory failure, poor prognosis in view of metastatic cancer, CODE STATUS and goals of treatment in detail. I informed him the patient's condition tests and reports and poor prognosis. Mr. Dov Fitzpatrick[NOK/patient's brother] requested DNR status and was very emotional and teary.He also expressed to the patient's nurse Ms. Millie Benedr his decision of DNR status. Took a verbal order and signed necessary papers, patient is DNR at this point. We will continue current management.
[2021-09-17] MEDS: cefTRIAXone/NS 1 GM/50 ML 1 GM/50 ML BAG IV SCH (22:52)
[2021-09-18] MEDS: IPRATROPIUM/ALBUTEROL SULFATE 3 ML AMPUL.NEB IH SCH ×4 (03:48→20:34)
[2021-09-18] MEDS: D5W/0.9% NACL 1,000 ML IV SCH (06:13)
[2021-09-18] MEDS: LORazepam 2 MG/ML VIAL IV PRN ×3 (06:18→15:12)
[2021-09-18] MEDS: MORPHINE 2 MG/1 ML INJ IV PRN ×3 (07:15→15:13)
[2021-09-18] MEDS: METOPROLOL TARTRATE 5 MG/5 ML INJ IV PRN (07:15)
[2021-09-18] MEDS ORDERED: MORPHINE 2 MG/1 ML INJ IV NR (10:12)
[2021-09-18] MEDS: levETIRAcetam 500 MG in DEXTROSE 5% IN WATER 100 ML IV SCH ×2 (11:15→21:30)
[2021-09-18] MEDS: dexAMETHasone 20 MG/5 ML VIAL IV SCH (11:16)
[2021-09-18] MEDS: FAMOTIDINE 20 MG/2 ML INJ IV SCH ×2 (11:16→21:31)
[2021-09-18] MEDS: ENOXAPARIN 40 MG/0.4 ML INJ SUB-Q SCH (11:16)
--- NOTE | 2021-09-18 14:28 | Consultation ---
History of Present Illness Consult date: 09/18/21 Chief complaint: The patient has Brain Mets, the patient has a nasal mask. There is no verbalization . Past History Past Medical History: seizures, stroke, other (Lung cancer) Medications and Allergies Allergies Allergy/AdvReac Type Severity Reaction Status Date / Time No Known Allergies Allergy Verified 09/18/21 12:07 Home Medications Medication Instructions Recorded Confirmed Last Taken Type dexAMETHasone [Decadron] 4 mg PO Q6H 7 Days #28 tablet 07/07/21 09/18/21 09/13/21 Rx levETIRAcetam [Keppra TAB] 500 mg PO BID #60 tablet 07/07/21 09/18/21 09/13/21 Rx Multivitamin 1 each PO QDAY 09/18/21 09/18/21 09/13/21 History Active Meds: Active Medications Acetaminophen (Acetaminophen 325 Mg Tab) 650 mg PO Q4H PRN PRN Reason: Pain MILD(1-3)/Fever >100.5/WEBSTER Albuterol (Albuterol 2.5 Mg/3 Ml Nebu) 2.5 mg IH Q4HRT PRN PRN Reason: Shortness Of Breath Albuterol/Ipratropium (Ipratropium/Albuterol Sulfate 3 Ml Ampul.Neb) 1 ampul IH Q6HRT [facility] Last Admin: 09/18/21 13:53 Dose: 1 ampul Documented by: Atorvastatin Calcium (Atorvastatin 40 Mg Tab) 40 mg PO QHS [facility] Last Admin: 09/17/21 22:56 Dose: Not Given Documented by: Dexamethasone (Dexamethasone 20 Mg/5 Ml Vial) 10 mg IV QDAY [facility] Stop: 09/20/21 10:01 Last Admin: 09/18/21 11:16 Dose: 10 mg Documented by: Enoxaparin Sodium (Enoxaparin 40 Mg/0.4 Ml Inj) 40 mg SUB-Q QDAY [facility]; Protocol Last Admin: 09/18/21 11:16 Dose: 40 mg Documented by: Famotidine (Famotidine 20 Mg/2 Ml Inj) 20 mg IV BID [facility] Last Admin: 09/18/21 11:16 Dose: 20 mg Documented by: Hydromorphone HCl (Hydromorphone 1 Mg/1 Ml Inj) 0.5 mg IV Q3H PRN PRN Reason: Pain , Severe (7-10) Dextrose/Sodium Chloride (D5ns) 1,000 mls @ 100 mls/hr IV DIRECT [facility] Last Admin: 09/18/21 06:13 Dose: 100 mls/hr Documented by: Levetiracetam 500 mg/ Dextrose 105 mls @ 400 mls/hr IV Q12HR [facility] Last Admin: 09/18/21 11:15 Dose: 400 mls/hr Documented by: Ceftriaxone Sodium (Rocephin/Ns 1 Gm/50 Ml) 1 gm in 50 mls @ 100 mls/hr IV Q24HR@2200 [facility]; Protocol Stop: 09/18/21 22:29 Last Admin: 09/17/21 22:52 Dose: 100 mls/hr Documented by: Labetalol HCl (Labetalol 20 Mg/4 Ml Inj) 10 mg IV Q5MIN PRN PRN Reason: to maintain SBP < 180 Lorazepam (Lorazepam 2 Mg/Ml Vial) 1 mg IV Q4H PRN PRN Reason: Seizures Last Admin: 09/18/21 10:40 Dose: 1 mg Documented by: Metoprolol Tartrate (Metoprolol Tartrate 5 Mg/5 Ml Inj) 5 mg IV Q6H PRN PRN Reason: Tachycardia Last Admin: 09/18/21 07:15 Dose: 5 mg Documented by: Morphine Sulfate (Morphine 2 Mg/1 Ml Inj) 2 mg IV Q3H PRN PRN Reason: Pain, Moderate (4-6) Last Admin: 09/18/21 10:40 Dose: 2 mg Documented by: Ondansetron HCl (Ondansetron 4 Mg/2 Ml Inj) 4 mg IV Q8H PRN PRN Reason: Nausea And Vomiting Sodium Chloride (Sodium Chloride 0.9% 10 Ml Flush Syringe) 10 ml IV BID [facility] Last Admin: 09/18/21 11:16 Dose: 10 ml Documented by: Sodium Chloride (Sodium Chloride 0.9% 10 Ml Flush Syringe) 10 ml IV PRN PRN PRN Reason: LINE FLUSH Physical Examination - Vital Signs Vital Signs: Vital Signs Temp Pulse Resp BP Pulse Ox 97.7 F 134 H 20 165/113 94 09/14/21 20:28 09/14/21 20:28 09/14/21 20:28 09/14/21 20:28 09/14/21 20:28 - Physical Exam Narrative exam: The patient does respond to some verbal commands, moves all 4 extremities . Results - Laboratory Findings CBC and BMP: 09/16/21 05:19 09/16/21 05:19 Abnormal Lab Findings: Abnormal Labs 09/14/21 09/14/21 09/14/21 20:09 20:09 20:09 WBC 13.9 H Plt Count Lymph % (Auto) 8.1 L Baso % (Auto) 1.9 H Lymph # (Auto) 1.1 L [place] # (Auto) 0.9 H Baso # (Auto) 0.3 H Seg Neutrophils % 83.3 H Seg Neuts % (Manual) Lymphocytes % (Manual) Seg Neutrophils # 11.6 H Seg Neutrophils # Man APTT 38.4 H Sodium 133 L Chloride 93.5 L Carbon Dioxide 21 L Creatinine Glucose Calcium 11.0 H CK-MB (CK-2) 10.0 H CK-MB (CK-2) Rel Index 8.0 H Total Protein 8.3 H Albumin 3.6 L 09/15/21 09/15/21 09/16/21 05:00 05:00 05:19 WBC 18.0 H 19.1 H Plt Count 459 H Lymph % (Auto) Baso % (Auto) Lymph # (Auto) [place] # (Auto) Baso # (Auto) Seg Neutrophils % Seg Neuts % (Manual) 91.0 H Lymphocytes % (Manual) 7.0 L Seg Neutrophils # Seg Neutrophils # Man 16.4 H APTT Sodium 135 L Chloride 94.4 L Carbon Dioxide Creatinine 0.7 L Glucose 117 H Calcium 11.3 H CK-MB (CK-2) CK-MB (CK-2) Rel Index Total Protein Albumin 09/16/21 05:19 WBC Plt Count Lymph % (Auto) Baso % (Auto) Lymph # (Auto) [place] # (Auto) Baso # (Auto) Seg Neutrophils % Seg Neuts % (Manual) Lymphocytes % (Manual) Seg Neutrophils # Seg Neutrophils # Man APTT Sodium Chloride Carbon Dioxide Creatinine 0.6 L Glucose 128 H Calcium 10.8 H CK-MB (CK-2) CK-MB (CK-2) Rel Index Total Protein Albumin Assessment and Plan 1. Encephalopathy - ( Multifactorial - Brain Mets - ). 2. ? Seizures . Plan : Neurological Prognosis is guarded ,. Only recommendations are to follow Seizure Precautions, Possible AEDs Call with Questions . Dr. Duran
--- NOTE | 2021-09-18 19:42 | Progress Note ---
Assessment and Plan Assessment and plan: -- Brain metastasis Status: Acute Admit the patient to the medical telemetry. NPO. IV fluid D5 normal saline at the rate of 100 cc/h. MRI of the brain and MRA of the brain and neck with and without contrast. PT OT speech evaluation. Neurology evaluation. Prognosis is guarded. --Altered mental status/metabolic encephalopathy Status: Acute Secondary to brain mets. NPO. IV fluid D5 normal saline at the rate of 100 cc/h. MRI of the brain and MRA of the brain and neck with and without contrast. PT OT speech evaluation. Neurology evaluation. Prognosis is guarded. --History of lung cancer Status: Acute Patient has history of lung cancer with diffuse brain mets. Will consult onc ology. Prognosis is guarded --History of seizure Status: Acute Patient has history of seizure. Seizure precautions Keppra 500 mg IV every 12 hours. Neurology evaluation --Sinus tachycardia Status: Acute Lopressor 5 mg IV every 6 hours as needed. Echocardiogram. Consult cardiology if needed --DNR status -- DVT prophylaxis Status: Acute SCD for DVT prophylaxis because of brain mets. Pepcid 20 mg IV every 12 hours for GI prophylaxis. Patient is a full code We will closely monitor patient and adjust management as needed Plan of care reviewed with the patient and his nurse 09/15/21 Patient with history of lung cancer with brain mets. Presents with altered ment al status, non verbal. CT shows Brain mets with progression of disease. For MRI Brain today. Neurology consulted Will also consult Dr. Gamez, Hematology/Oncologist 09/16/2021; neuro work-up is still pending, patient is severely hypoxic Poor prognosis, full CODE STATUS, network consultant recommendations noted and appreciated 09/17/2021; I discussed with patient's brother Mr. Dov Fitzpatrick at [phone] patient's critical illness ,poor prognosis goals of treatment, And CODE STATUS, patient's brother was very emotional and requested DNR status, patient's nurse Ms. Whitney witnessed the brothers shoes Signed essential papers, patient is DNR status at this point. Nursing charge nurse informed 09/18/2021; hospice and palliative care, discussed with patient's brother who agreed Case management DC planning with inpatient hospice versus home with hospice versus SNF with hospice Patient is ready to be discharged, poor prognosis,DNR status History Interval history: Patient is severely hypoxemic and in severe respiratory distress On BiPAP, DNR status, palliative care vital signs noted Hospitalist Physical - Constitutional Vitals: Temp Pulse Resp BP Pulse Ox 97.4 F L 132 H 37 H 147/95 95 09/17/21 15:39 09/18/21 16:00 09/18/21 16:00 09/17/21 15:39 09/18/21 16:00 General appearance: Present: severe distress, cachectic, disheveled, other - EENT Eyes: Present: PERRL, EOM intact - Neck Neck: Present: supple, normal ROM - Respiratory Respiratory effort: normal Respiratory: bilateral: diminished, rhonchi, negative: rales, wheezing - Cardiovascular Rhythm: regular Heart Sounds: Present: S1 & S2 - Extremities Extremities: no ischemia, No edema - Abdominal General gastrointestinal: soft, non-tender, non-distended, normal bowel sounds - Integumentary Integumentary: Present: clear, warm - Psychiatric Psychiatric: agitated, other (Very sick) - Neurologic Neurologic: moves all extremities HEART Score - HEART Score Troponin: Troponin T < 0.010 ng/mL (0.00-0.029) 09/14/21 20:09 Results - Labs CBC & Chem 7: 09/16/21 05:19 09/16/21 05:19 Labs: Laboratory Last Values WBC 19.1 K/mm3 (4.5-11.0) H 09/16/21 05:19 RBC 4.27 M/mm3 (3.65-5.03) 09/16/21 05:19 Hgb 12.3 gm/dl (11.8-15.2) 09/16/21 05:19 Hct 37.7 % (35.5-45.6) 09/16/21 05:19 MCV 89 fl (84-94) 09/16/21 05:19 MCH 29 pg (28-32) 09/16/21 05:19 MCHC 33 % (32-34) 09/16/21 05:19 RDW 14.4 % (13.2-15.2) 09/16/21 05:19 Plt Count 459 K/mm3 (140-440) H 09/16/21 05:19 Lymph % (Auto) 8.1 % (13.4-35.0) L 09/14/21 20:09 Talbot % (Auto) 6.2 % (0.0-7.3) 09/14/21 20:09 Eos % (Auto) 0.5 % (0.0-4.3) 09/14/21 20:09 Baso % (Auto) 1.9 % (0.0-1.8) H 09/14/21 20:09 Lymph # (Auto) 1.1 K/mm3 (1.2-5.4) L 09/14/21 20:09 Talbot # (Auto) 0.9 K/mm3 (0.0-0.8) H 09/14/21 20:09 Eos # (Auto) 0.1 K/mm3 (0.0-0.4) 09/14/21 20:09 Baso # (Auto) 0.3 K/mm3 (0.0-0.1) H 09/14/21 20:09 Add Manual Diff Complete 09/15/21 05:00 Total Counted 100 09/15/21 05:00 Seg Neutrophils % Performance Tester 09/15/21 05:00 Seg Neuts % (Manual) 91.0 % (40.0-70.0) H 09/15/21 05:00 Lymphocytes % (Manual) 7.0 % (13.4-35.0) L 09/15/21 05:00 Monocytes % (Manual) 2.0 % (0.0-7.3) 09/15/21 05:00 Nucleated RBC % Not Reportable 09/15/21 05:00 Seg Neutrophils # 11.6 K/mm3 (1.8-7.7) H 09/14/21 20:09 Seg Neutrophils # Man 16.4 K/mm3 (1.8-7.7) H 09/15/21 05:00 Band Neutrophils # 0.0 K/mm3 09/15/21 05:00 Lymphocytes # (Manual) 1.3 K/mm3 (1.2-5.4) 09/15/21 05:00 Abs React Lymphs (Man) 0.0 K/mm3 09/15/21 05:00 Monocytes # (Manual) 0.4 K/mm3 (0.0-0.8) 09/15/21 05:00 Eosinophils # (Manual) 0.0 K/mm3 (0.0-0.4) 09/15/21 05:00 Basophils # (Manual) 0.0 K/mm3 (0.0-0.1) 09/15/21 05:00 Metamyelocytes # 0.0 K/mm3 09/15/21 05:00 Myelocytes # 0.0 K/mm3 09/15/21 05:00 Promyelocytes # 0.0 K/mm3 09/15/21 05:00 Blast Cells # 0.0 K/mm3 09/15/21 05:00 WBC Morphology Not Reportable 09/15/21 05:00 Hypersegmented Neuts Not Reportable 09/15/21 05:00 Hyposegmented Neuts Not Reportable 09/15/21 05:00 Hypogranular Neuts Not Reportable 09/15/21 05:00 Smudge Cells Not Reportable 09/15/21 05:00 Toxic Granulation Not Reportable 09/15/21 05:00 Toxic Vacuolation Not Reportable 09/15/21 05:00 Dohle Bodies Not Reportable 09/15/21 05:00 Pelger-Huet Anomaly Not Reportable 09/15/21 05:00 Alex Rods Not Reportable 09/15/21 05:00 Platelet Estimate Consistent w auto 09/15/21 05:00 Clumped Platelets Not Reportable 09/15/21 05:00 Plt Clumps, EDTA Not Reportable 09/15/21 05:00 Large Platelets Not Reportable 09/15/21 05:00 Giant Platelets Not Reportable 09/15/21 05:00 Platelet Satelliting Not Reportable 09/15/21 05:00 Plt Morphology Comment Not Reportable 09/15/21 05:00 RBC Morphology Normal 09/15/21 05:00 Dimorphic RBCs Not Reportable 09/15/21 05:00 Polychromasia Not Reportable 09/15/21 05:00 Hypochromasia Not Reportable 09/15/21 05:00 Poikilocytosis Not Reportable 09/15/21 05:00 Anisocytosis Not Reportable 09/15/21 05:00 Microcytosis Not Reportable 09/15/21 05:00 Macrocytosis Not Reportable 09/15/21 05:00 Spherocytes Not Reportable 09/15/21 05:00 Pappenheimer Bodies Not Reportable 09/15/21 05:00 Sickle Cells Not Reportable 09/15/21 05:00 Target Cells Not Reportable 09/15/21 05:00 Tear Drop Cells Not Reportable 09/15/21 05:00 Ovalocytes Not Reportable 09/15/21 05:00 Helmet Cells Not Reportable 09/15/21 05:00 Vincent-Altmar Bodies Not Reportable 09/15/21 05:00 [place] Rings Not Reportable 09/15/21 05:00 Heladio Cells Not Reportable 09/15/21 05:00 Bite Cells Not Reportable 09/15/21 05:00 Crenated Cell Not Reportable 09/15/21 05:00 Elliptocytes Not Reportable 09/15/21 05:00 Acanthocytes (Spur) Not Reportable 09/15/21 05:00 Rouleaux Not Reportable 09/15/21 05:00 Hemoglobin C Crystals Not Reportable 09/15/21 05:00 Schistocytes Not Reportable 09/15/21 05:00 Malaria parasites Not Reportable 09/15/21 05:00 Ruy Bodies Not Reportable 09/15/21 05:00 Hem Pathologist Commnt No 09/15/21 05:00 PT 14.4 Sec. (12.2-14.9) 09/14/21 20:09 INR 1.01 (0.87-1.13) 09/14/21 20:09 APTT 38.4 Sec. (24.2-36.6) H 09/14/21 20:09 Thrombin Time 15.1 Sec. (15.1-19.6) 09/14/21 20:09 Sodium 140 mmol/L (137-145) 09/16/21 05:19 Potassium 4.7 mmol/L (3.6-5.0) 09/16/21 05:19 Chloride 100.7 mmol/L (98-107) 09/16/21 05:19 Carbon Dioxide 24 mmol/L (22-30) 09/16/21 05:19 Anion Gap 20 mmol/L 09/16/21 05:19 BUN 19 mg/dL (9-20) 09/16/21 05:19 Creatinine 0.6 mg/dL (0.8-1.3) L 09/16/21 05:19 Estimated GFR > 60 ml/min 09/16/21 05:19 BUN/Creatinine Ratio 32 % 09/16/21 05:19 Glucose 128 mg/dL (75-100) H 09/16/21 05:19 Lactic Acid 1.50 mmol/L (0.7-2.0) 09/15/21 05:00 Calcium 10.8 mg/dL (8.4-10.2) H 09/16/21 05:19 Total Bilirubin 0.50 mg/dL (0.1-1.2) 09/14/21 20:09 AST 34 units/L (5-40) 09/14/21 20:09 ALT 12 units/L (7-56) 09/14/21 20:09 Alkaline Phosphatase 124 units/L (35-129) 09/14/21 20:09 Total Creatine Kinase 125 units/L (55-170) 09/14/21 20:09 CK-MB (CK-2) 10.0 ng/mL (0.0-4.0) H 09/14/21 20:09 CK-MB (CK-2) Rel Index 8.0 (0-4) H 09/14/21 20:09 Troponin T < 0.010 ng/mL (0.00-0.029) 09/14/21 20:09 Total Protein 8.3 g/dL (6.3-8.2) H 09/14/21 20:09 Albumin 3.6 g/dL (3.9-5) L 09/14/21 20:09 Albumin/Globulin Ratio 0.8 % 09/14/21 20:09 Triglycerides 105 mg/dL (2-149) 09/15/21 05:00 Cholesterol 194 mg/dL (50-199) 09/15/21 05:00 LDL Cholesterol Direct 122 mg/dL (50-130) 09/15/21 05:00 HDL Cholesterol 45 mg/dL (40-59) 09/15/21 05:00 Cholesterol/HDL Ratio 4.31 % 09/15/21 05:00 Alaniz/IV: Voiding Method Condom Catheter Active Medications - Current Medications Current Medications: Generic Name Dose Route Start Last Admin Trade Name Freq PRN Reason Stop Dose Admin Acetaminophen 650 mg 09/14/21 21:42 Acetaminophen 325 Mg Tab PO Q4H PRN Pain MILD(1-3)/Fever >100.5/WEBSTER Albuterol 2.5 mg 09/14/21 21:42 Albuterol 2.5 Mg/3 Ml Nebu IH Q4HRT PRN Shortness Of Breath Albuterol/Ipratropium 1 ampul 09/15/21 02:00 09/18/21 13:53 Ipratropium/Albuterol Sulfate 3 Ml Ampul.Neb IH 1 ampul Q6HRT ALEXX Administration Atorvastatin Calcium 40 mg 09/14/21 22:00 09/17/21 22:56 Atorvastatin 40 Mg Tab PO Not Given QHS ALEXX Dexamethasone 10 mg 09/17/21 10:00 09/18/21 11:16 Dexamethasone 20 Mg/5 Ml Vial IV 09/20/21 10:01 10 mg QDAY ALEXX Administration Enoxaparin Sodium 40 mg 09/18/21 10:00 09/18/21 11:16 Enoxaparin 40 Mg/0.4 Ml Inj SUB-Q 40 mg QDAY ALEXX Administration Protocol Famotidine 20 mg 09/14/21 22:00 09/18/21 11:16 Famotidine 20 Mg/2 Ml Inj IV 20 mg BID ALEXX Administration Hydromorphone HCl 0.5 mg 09/14/21 21:42 Hydromorphone 1 Mg/1 Ml Inj IV Q3H PRN Pain , Severe (7-10) Dextrose/Sodium Chloride 1,000 mls @ 100 mls/hr 09/14/21 22:00 09/18/21 06:13 D5ns IV 100 mls/hr DIRECT ALEXX Administration Levetiracetam 500 mg/ Dextrose 105 mls @ 400 mls/hr 09/15/21 10:00 09/18/21 11:15 IV 400 mls/hr Q12HR ALEXX Administration Ceftriaxone Sodium 1 gm in 50 mls @ 100 mls/hr 09/14/21 23:00 09/17/21 22:52 Rocephin/Ns 1 Gm/50 Ml IV 09/18/21 22:29 100 mls/hr Q24HR@2200 ALEXX Administration Protocol Lorazepam 1 mg 09/15/21 00:35 09/18/21 15:12 Lorazepam 2 Mg/Ml Vial IV 1 mg Q4H PRN Administration Seizures Metoprolol Tartrate 5 mg 09/14/21 21:56 09/18/21 07:15 Metoprolol Tartrate 5 Mg/5 Ml Inj IV 5 mg Q6H PRN Administration Tachycardia Morphine Sulfate 2 mg 09/18/21 11:00 09/18/21 15:13 Morphine 2 Mg/1 Ml Inj IV 2 mg Q3H PRN Administration Pain, Moderate (4-6) Ondansetron HCl 4 mg 09/14/21 21:42 Ondansetron 4 Mg/2 Ml Inj IV Q8H PRN Nausea And Vomiting Sodium Chloride 10 ml 09/14/21 22:00 09/18/21 11:16 Sodium Chloride 0.9% 10 Ml Flush Syringe IV 10 ml BID ALEXX Administration Sodium Chloride 10 ml 09/14/21 21:42 Sodium Chloride 0.9% 10 Ml Flush Syringe IV PRN PRN LINE FLUSH Nutrition/Malnutrition Assess - Dietary Evaluation Nutrition/Malnutrition Findings: Nutrition Notes Start: 09/18/21 09:58 Freq: Status: Active Protocol: Document 09/18/21 09:58 KEILY (Rec: 09/18/21 10:25 KEILY [id number]) Nutrition Notes Need for Assessment generated from: Low BMI Initial or Follow up Assessment Current Diagnosis Respiratory Failure,Stroke Other Pertinent Diagnosis Lung Cancer, Brain metastasis, AMS, Seizure, CVA. Current Diet NPO (09/14 20:25). Labs/Tests 09/16: Crea 0.6, Glu 128, Ca 10.8. Pertinent Medications 09/18: D5ns 1000 ml @ 100 ml/ hr, others nutritionally unremarkable. Height 6 ft 4 in Weight 76 kg [place] Body Weight (kg) 91.81 BMI 20.4 Weight change and time frame None reported at admission. Weight Status Appropriate Subjective/Other Information RD cinsult for Low BMI assessment. Low BMI was reported erroneously, I spoke with RN and body weight was corrected. Pt is currently on NPO. Pt is lethargis. Pt failed swallow screen test. Pt has missing teeth. Percent of energy/protein needs met: Pt is currently on NPO. Burn Absent Trauma Absent GI Symptoms None Difficulty In Swallowing,Chewing Food Allergy No Skin Integrity/Comment Clear, warm, dry. Current % PO Other Minimum of two criteria No Is patient on ventilator? No Is Patient Ambulatory and/or Out of Bed No REE-([facility]-confined to bed) Calculation Used for Recommendations [facility] Additional Notes Protein: 0.8-1 g/Kg; 61-67 g/ day. Fluids: 1 ml/Kcal, or as per MD. Nutrition Intervention Change Diet Order: Continue NPO as per MD; when pertinent advance to TF. Follow-Up By: 09/20/21 Additional Comments F/U to check for dietary advancement.
[2021-09-18] MEDS: cefTRIAXone/NS 1 GM/50 ML 1 GM/50 ML BAG IV SCH (21:31)
--- NOTE | 2021-09-19 00:23 | Progress Note ---
Assessment and Plan Assessment and plan: -- Brain metastasis Status: Acute NPO. IV fluid D5 normal saline at the rate of 100 cc/h. Unable to check MRI of the brain and MRA of the brain as patient is unstable and neck with and without contrast. Unable to check PT OT speech evaluation. Patient is critically ill and unstable --Altered mental status/metabolic encephalopathy Status: Acute Secondary to brain mets. NPO. IV fluid D5 normal saline at the rate of 100 cc/h. MRI of the brain and MRA of the brain and neck with and without contrast. PT OT speech evaluation. Neurology evaluation. Prognosis is guarded. --History of lung cancer Status: Acute Patient has history of lung cancer with diffuse brain mets. Will consult oncology. Prognosis is guarded --History of seizure Status: Acute Patient has history of seizure. Seizure precautions Keppra 500 mg IV every 12 hours. Neurology evaluation --Sinus tachycardia Status: Acute Lopressor 5 mg IV every 6 hours as needed. Echocardiogram. Consult cardiology if needed --DNR status -- DVT prophylaxis Status: Acute SCD for DVT prophylaxis because of brain mets. Pepcid 20 mg IV every 12 hours for GI prophylaxis. Patient is a full code We will closely monitor patient and adjust management as needed Plan of care reviewed with the patient and his nurse 09/15/21 Patient with history of lung cancer with brain mets. Presents with altered mental status, non verbal. CT shows Brain mets with progression of disease. For MRI Brain today. Neurology consulted Will also consult Dr. Gamez, Hematology/Oncologist 09/16/2021; neuro work-up is still pending, patient is severely hypoxic Poor prognosis, full CODE STATUS, diet consultant recommendations noted and appreciated 09/17/2021; I discussed with patient's brother Mr. Dov Fitzpatrick at [phone] patient's critical illness ,poor prognosis goals of treatment, And CODE STATUS, patient's brother was very emotional and requested DNR status, patient's nurse Ms. Whitney witnessed the brothers shoes Signed essential papers, patient is DNR status at this point. Nursing charge nurse informed 09/18/2021; hospice and palliative care, discussed with patient's brother who agreed Case management DC planning with inpatient hospice versus home with hospice versus SNF with hospice Patient is ready to be discharged, poor prognosis,DNR status 09/19/2021; I called patient's brother at [phone] and updated patient's condition, discussed the options of hospice inpatient versus at home placement He verbalized understanding and agreed with the plan, encouraged him to call back if he has new Questions or Concerns History Interval history: I have seen and examined the patient at the bedside this morning Patient is in severe distress with shortness of breath On continuous BiPAP, critically ill DNR status Hospitalist Physical - Constitutional Vitals: Temp Pulse Resp BP Pulse Ox 98.1 F 125 H 32 H 143/91 96 09/18/21 19:04 09/18/21 20:00 09/18/21 20:00 09/18/21 19:04 09/18/21 22:00 General appearance: Present: severe distress, cachectic, disheveled, other - EENT Eyes: Present: PERRL, EOM intact - Neck Neck: Present: supple, normal ROM - Respiratory Respiratory effort: normal Respiratory: bilateral: diminished, rhonchi, negative: rales, wheezing - Cardiovascular Rhythm: regular Heart Sounds: Present: S1 & S2 - Extremities Extremities: no ischemia, No edema - Abdominal General gastrointestinal: soft, non-tender, non-distended, normal bowel sounds - Integumentary Integumentary: Present: clear, warm - Psychiatric Psychiatric: other (Noncommunicative) - Neurologic Neurologic: other HEART Score - HEART Score Troponin: Troponin T < 0.010 ng/mL (0.00-0.029) 09/14/21 20:09 Results - Labs CBC & Chem 7: 09/16/21 05:19 09/16/21 05:19 Labs: Laboratory Last Values WBC 19.1 K/mm3 (4.5-11.0) H 09/16/21 05:19 RBC 4.27 M/mm3 (3.65-5.03) 09/16/21 05:19 Hgb 12.3 gm/dl (11.8-15.2) 09/16/21 05:19 Hct 37.7 % (35.5-45.6) 09/16/21 05:19 MCV 89 fl (84-94) 09/16/21 05:19 MCH 29 pg (28-32) 09/16/21 05:19 MCHC 33 % (32-34) 09/16/21 05:19 RDW 14.4 % (13.2-15.2) 09/16/21 05:19 Plt Count 459 K/mm3 (140-440) H 09/16/21 05:19 Lymph % (Auto) 8.1 % (13.4-35.0) L 09/14/21 20:09 [place] % (Auto) 6.2 % (0.0-7.3) 09/14/21 20:09 Eos % (Auto) 0.5 % (0.0-4.3) 09/14/21 20:09 Baso % (Auto) 1.9 % (0.0-1.8) H 09/14/21 20:09 Lymph # (Auto) 1.1 K/mm3 (1.2-5.4) L 09/14/21 20:09 [place] # (Auto) 0.9 K/mm3 (0.0-0.8) H 09/14/21 20:09 Eos # (Auto) 0.1 K/mm3 (0.0-0.4) 09/14/21 20:09 Baso # (Auto) 0.3 K/mm3 (0.0-0.1) H 09/14/21 20:09 Add Manual Diff Complete 09/15/21 05:00 Total Counted 100 09/15/21 05:00 Seg Neutrophils % Warper Fixer 09/15/21 05:00 Seg Neuts % (Manual) 91.0 % (40.0-70.0) H 09/15/21 05:00 Lymphocytes % (Manual) 7.0 % (13.4-35.0) L 09/15/21 05:00 Monocytes % (Manual) 2.0 % (0.0-7.3) 09/15/21 05:00 Nucleated RBC % Not Reportable 09/15/21 05:00 Seg Neutrophils # 11.6 K/mm3 (1.8-7.7) H 09/14/21 20:09 Seg Neutrophils # Man 16.4 K/mm3 (1.8-7.7) H 09/15/21 05:00 Band Neutrophils # 0.0 K/mm3 09/15/21 05:00 Lymphocytes # (Manual) 1.3 K/mm3 (1.2-5.4) 09/15/21 05:00 Abs React Lymphs (Man) 0.0 K/mm3 09/15/21 05:00 Monocytes # (Manual) 0.4 K/mm3 (0.0-0.8) 09/15/21 05:00 Eosinophils # (Manual) 0.0 K/mm3 (0.0-0.4) 09/15/21 05:00 Basophils # (Manual) 0.0 K/mm3 (0.0-0.1) 09/15/21 05:00 Metamyelocytes # 0.0 K/mm3 09/15/21 05:00 Myelocytes # 0.0 K/mm3 09/15/21 05:00 Promyelocytes # 0.0 K/mm3 09/15/21 05:00 Blast Cells # 0.0 K/mm3 09/15/21 05:00 WBC Morphology Not Reportable 09/15/21 05:00 Hypersegmented Neuts Not Reportable 09/15/21 05:00 Hyposegmented Neuts Not Reportable 09/15/21 05:00 Hypogranular Neuts Not Reportable 09/15/21 05:00 Smudge Cells Not Reportable 09/15/21 05:00 Toxic Granulation Not Reportable 09/15/21 05:00 Toxic Vacuolation Not Reportable 09/15/21 05:00 Dohle Bodies Not Reportable 09/15/21 05:00 Pelger-Huet Anomaly Not Reportable 09/15/21 05:00 Alex Rods Not Reportable 09/15/21 05:00 Platelet Estimate Consistent w auto 09/15/21 05:00 Clumped Platelets Not Reportable 09/15/21 05:00 Plt Clumps, EDTA Not Reportable 09/15/21 05:00 Large Platelets Not Reportable 09/15/21 05:00 Giant Platelets Not Reportable 09/15/21 05:00 Platelet Satelliting Not Reportable 09/15/21 05:00 Plt Morphology Comment Not Reportable 09/15/21 05:00 RBC Morphology Normal 09/15/21 05:00 Dimorphic RBCs Not Reportable 09/15/21 05:00 Polychromasia Not Reportable 09/15/21 05:00 Hypochromasia Not Reportable 09/15/21 05:00 Poikilocytosis Not Reportable 09/15/21 05:00 Anisocytosis Not Reportable 09/15/21 05:00 Microcytosis Not Reportable 09/15/21 05:00 Macrocytosis Not Reportable 09/15/21 05:00 Spherocytes Not Reportable 09/15/21 05:00 Pappenheimer Bodies Not Reportable 09/15/21 05:00 Sickle Cells Not Reportable 09/15/21 05:00 Target Cells Not Reportable 09/15/21 05:00 Tear Drop Cells Not Reportable 09/15/21 05:00 Ovalocytes Not Reportable 09/15/21 05:00 Helmet Cells Not Reportable 09/15/21 05:00 [place] Bodies Not Reportable 09/15/21 05:00 [place] Rings Not Reportable 09/15/21 05:00 [place] Cells Not Reportable 09/15/21 05:00 Bite Cells Not Reportable 09/15/21 05:00 Crenated Cell Not Reportable 09/15/21 05:00 Elliptocytes Not Reportable 09/15/21 05:00 Acanthocytes (Spur) Not Reportable 09/15/21 05:00 Rouleaux Not Reportable 09/15/21 05:00 Hemoglobin C Crystals Not Reportable 09/15/21 05:00 Schistocytes Not Reportable 09/15/21 05:00 Malaria parasites Not Reportable 09/15/21 05:00 Ruy Bodies Not Reportable 09/15/21 05:00 Hem Pathologist Commnt No 09/15/21 05:00 PT 14.4 Sec. (12.2-14.9) 09/14/21 20:09 INR 1.01 (0.87-1.13) 09/14/21 20:09 APTT 38.4 Sec. (24.2-36.6) H 09/14/21 20:09 Thrombin Time 15.1 Sec. (15.1-19.6) 09/14/21 20:09 Sodium 140 mmol/L (137-145) 09/16/21 05:19 Potassium 4.7 mmol/L (3.6-5.0) 09/16/21 05:19 Chloride 100.7 mmol/L (98-107) 09/16/21 05:19 Carbon Dioxide 24 mmol/L (22-30) 09/16/21 05:19 Anion Gap 20 mmol/L 09/16/21 05:19 BUN 19 mg/dL (9-20) 09/16/21 05:19 Creatinine 0.6 mg/dL (0.8-1.3) L 09/16/21 05:19 Estimated GFR > 60 ml/min 09/16/21 05:19 BUN/Creatinine Ratio 32 % 09/16/21 05:19 Glucose 128 mg/dL (75-100) H 09/16/21 05:19 Lactic Acid 1.50 mmol/L (0.7-2.0) 09/15/21 05:00 Calcium 10.8 mg/dL (8.4-10.2) H 09/16/21 05:19 Total Bilirubin 0.50 mg/dL (0.1-1.2) 09/14/21 20:09 AST 34 units/L (5-40) 09/14/21 20:09 ALT 12 units/L (7-56) 09/14/21 20:09 Alkaline Phosphatase 124 units/L (35-129) 09/14/21 20:09 Total Creatine Kinase 125 units/L (55-170) 09/14/21 20:09 CK-MB (CK-2) 10.0 ng/mL (0.0-4.0) H 09/14/21 20:09 CK-MB (CK-2) Rel Index 8.0 (0-4) H 09/14/21 20:09 Troponin T < 0.010 ng/mL (0.00-0.029) 09/14/21 20:09 Total Protein 8.3 g/dL (6.3-8.2) H 09/14/21 20:09 Albumin 3.6 g/dL (3.9-5) L 09/14/21 20:09 Albumin/Globulin Ratio 0.8 % 09/14/21 20:09 Triglycerides 105 mg/dL (2-149) 09/15/21 05:00 Cholesterol 194 mg/dL (50-199) 09/15/21 05:00 LDL Cholesterol Direct 122 mg/dL (50-130) 09/15/21 05:00 HDL Cholesterol 45 mg/dL (40-59) 09/15/21 05:00 Cholesterol/HDL Ratio 4.31 % 09/15/21 05:00 Alaniz/IV: Voiding Method Condom Catheter Active Medications - Current Medications Current Medications: Generic Name Dose Route Start Last Admin Trade Name Freq PRN Reason Stop Dose Admin Acetaminophen 650 mg 09/14/21 21:42 Acetaminophen 325 Mg Tab PO Q4H PRN Pain MILD(1-3)/Fever >100.5/WEBSTER Albuterol 2.5 mg 09/14/21 21:42 Albuterol 2.5 Mg/3 Ml Nebu IH Q4HRT PRN Shortness Of Breath Albuterol/Ipratropium 1 ampul 09/15/21 02:00 09/18/21 20:34 Ipratropium/Albuterol Sulfate 3 Ml Ampul.Neb IH 1 ampul Q6HRT ALEXX Administration Atorvastatin Calcium 40 mg 09/14/21 22:00 09/18/21 21:30 Atorvastatin 40 Mg Tab PO Not Given QHS ALEXX Dexamethasone 10 mg 09/17/21 10:00 09/18/21 11:16 Dexamethasone 20 Mg/5 Ml Vial IV 09/20/21 10:01 10 mg QDAY ALEXX Administration Enoxaparin Sodium 40 mg 09/18/21 10:00 09/18/21 11:16 Enoxaparin 40 Mg/0.4 Ml Inj SUB-Q 40 mg QDAY ALEXX Administration Protocol Famotidine 20 mg 09/14/21 22:00 09/18/21 21:31 Famotidine 20 Mg/2 Ml Inj IV 20 mg BID ALEXX Administration Hydromorphone HCl 0.5 mg 09/14/21 21:42 Hydromorphone 1 Mg/1 Ml Inj IV Q3H PRN Pain , Severe (7-10) Dextrose/Sodium Chloride 1,000 mls @ 100 mls/hr 09/14/21 22:00 09/18/21 06:13 D5ns IV 100 mls/hr DIRECT ALEXX Administration Levetiracetam 500 mg/ Dextrose 105 mls @ 400 mls/hr 09/15/21 10:00 09/18/21 21:30 IV 400 mls/hr Q12HR ALEXX Administration Lorazepam 1 mg 09/15/21 00:35 09/18/21 15:12 Lorazepam 2 Mg/Ml Vial IV 1 mg Q4H PRN Administration Seizures Metoprolol Tartrate 5 mg 09/14/21 21:56 09/18/21 07:15 Metoprolol Tartrate 5 Mg/5 Ml Inj IV 5 mg Q6H PRN Administration Tachycardia Morphine Sulfate 2 mg 09/18/21 11:00 09/18/21 15:13 Morphine 2 Mg/1 Ml Inj IV 2 mg Q3H PRN Administration Pain, Moderate (4-6) Ondansetron HCl 4 mg 09/14/21 21:42 Ondansetron 4 Mg/2 Ml Inj IV Q8H PRN Nausea And Vomiting Sodium Chloride 10 ml 09/14/21 22:00 09/18/21 21:31 Sodium Chloride 0.9% 10 Ml Flush Syringe IV 10 ml BID ALEXX Administration Sodium Chloride 10 ml 09/14/21 21:42 Sodium Chloride 0.9% 10 Ml Flush Syringe IV PRN PRN LINE FLUSH Nutrition/Malnutrition Assess - Dietary Evaluation Nutrition/Malnutrition Findings: Nutrition Notes Start: 09/18/21 09:58 Freq: Status: Active Protocol: Document 09/18/21 09:58 KEILY (Rec: 09/18/21 10:25 KEILY [id number]) Nutrition Notes Need for Assessment generated from: Low BMI Initial or Follow up Assessment Current Diagnosis Respiratory Failure,Stroke Other Pertinent Diagnosis Lung Cancer, Brain metastasis, AMS, Seizure, CVA. Current Diet NPO (09/14 20:25). Labs/Tests 09/16: Crea 0.6, Glu 128, Ca 10.8. Pertinent Medications 09/18: D5ns 1000 ml @ 100 ml/ hr, others nutritionally unremarkable. Height 6 ft 4 in Weight 76 kg [place] Body Weight (kg) 91.81 BMI 20.4 Weight change and time frame None reported at admission. Weight Status Appropriate Subjective/Other Information RD cinsult for Low BMI assessment. Low BMI was reported erroneously, I spoke with RN and body weight was corrected. Pt is currently on NPO. Pt is lethargis. Pt failed swallow screen test. Pt has missing teeth. Percent of energy/protein needs met: Pt is currently on NPO. Burn Absent Trauma Absent GI Symptoms None Difficulty In Swallowing,Chewing Food Allergy No Skin Integrity/Comment Clear, warm, dry. Current % PO Other Minimum of two criteria No Is patient on ventilator? No Is Patient Ambulatory and/or Out of Bed No REE-([facility]-confined to bed) 2056. Calculation Used for Recommendations [facility] Additional Notes Protein: 0.8-1 g/Kg; 61-67 g/ day. Fluids: 1 ml/Kcal, or as per MD. Nutrition Intervention Change Diet Order: Continue NPO as per MD; when pertinent advance to TF. Follow-Up By: 09/20/21 Additional Comments F/U to check for dietary advancement.
[2021-09-19] MEDS: D5W/0.9% NACL 1,000 ML IV SCH ×2 (03:27→23:35)
[2021-09-19] MEDS: MORPHINE 2 MG/1 ML INJ IV PRN ×2 (03:27→23:56)
[2021-09-19] MEDS: IPRATROPIUM/ALBUTEROL SULFATE 3 ML AMPUL.NEB IH SCH ×4 (03:51→23:40)
[2021-09-19] MEDS: METOPROLOL TARTRATE 5 MG/5 ML INJ IV PRN ×2 (09:42→23:52)
[2021-09-19] MEDS: FAMOTIDINE 20 MG/2 ML INJ IV SCH ×2 (10:54→21:31)
[2021-09-19] MEDS: ENOXAPARIN 40 MG/0.4 ML INJ SUB-Q SCH (10:54)
[2021-09-19] MEDS: dexAMETHasone 20 MG/5 ML VIAL IV SCH (11:00)
[2021-09-19] MEDS: levETIRAcetam 500 MG in DEXTROSE 5% IN WATER 100 ML IV SCH ×2 (11:05→21:31)
[2021-09-19] MEDS: LORazepam 2 MG/ML VIAL IV PRN (11:05)
--- NOTE | 2021-09-19 13:36 | Event Note ---
Date: 09/19/21 I called patient's brother/NOK Mr. Dov Blanton at [phone] and updated the patient's condition, treatment and discharge planning. Recommended hospice placement inpatient versus at home, and encouraged him to talk to showcase trimmer if he has any questions or concerns regarding this discharge plan. Patient brother verbalized understanding and agreed with hospice placement. I informed patient's nurse and the case management about this conversation
[2021-09-19] MEDS ORDERED: LIPASE 10,500/PROTEASE 25,000/AMYLASE 43,750 (UNITS) DR CAP FEEDTUBE PRN ×2 (15:00→16:54)
[2021-09-19] MEDS ORDERED: SIMPLE SYRUP 15 ML FEEDTUBE PRN ×4 (15:00→16:54)
[2021-09-19] MEDS ORDERED: SODIUM BICARBONATE 325 MG TAB FEEDTUBE PRN ×2 (15:00→16:54)
[2021-09-20] MEDS: LORazepam 2 MG/ML VIAL IV PRN (00:06)
[2021-09-20] MEDS: METOPROLOL TARTRATE 5 MG/5 ML INJ IV PRN ×2 (06:42→13:54)
[2021-09-20] MEDS: MORPHINE 2 MG/1 ML INJ IV PRN (06:42)
[2021-09-20] MEDS: IPRATROPIUM/ALBUTEROL SULFATE 3 ML AMPUL.NEB IH SCH ×2 (08:59→14:25)
[2021-09-20] MEDS: dexAMETHasone 20 MG/5 ML VIAL IV SCH (10:51)
[2021-09-20] MEDS: levETIRAcetam 500 MG in DEXTROSE 5% IN WATER 100 ML IV SCH ×2 (10:52→21:27)
[2021-09-20] MEDS: ENOXAPARIN 40 MG/0.4 ML INJ SUB-Q SCH (10:53)
[2021-09-20] MEDS: FAMOTIDINE 20 MG/2 ML INJ IV SCH ×2 (10:53→21:27)
--- NOTE | 2021-09-20 11:51 | Discharge Summary ---
Providers - Providers Date of Admission: 09/14/21 21:18 Date of discharge: 09/20/21 Attending physician: JOSUE PRATHER 09/14/21 20:25 Speech Therapy Evaluation and Treat [CONS] Routine Reason For Exam: Patient failed swallow screen 09/14/21 21:42 Consult to Physician [CONS] Routine Comment: Consulting Provider: FELI MART Physician Instructions: Reason For Exam: Brain mets Occupational Therapy Evaluate and Treat [CONS] Routine Comment: Reason For Exam: Neuro deficits Physical Therapy Evaluation and Treat [CONS] Routine Comment: Reason For Exam: Neuro deficits 09/15/21 10:09 Consult to Physician [CONS] Routine Comment: Consulting Provider: ARASH GAMEZ Physician Instructions: Reason For Exam: Brain metastases,history of lung ca 09/19/21 14:21 Consult to Dietitian/Nutrition [CONS] Routine Physician Instructions: Assess nutrtn needs, initiate, modify, manage TF Reason For Exam: Reason for Consult: Write/Manage Tube Feeding Reason for Consult: Write/Manage Tube Feeding Primary care physician: JOINTER SUBMARINE CABLE Hospitalization Condition: Poor Pertinent studies: Head CT CXR Hospital course: 50-year male with history of CVA with left-sided deficit was brought to the hospital because patient becomes suddenly nonverbal. Family reports last LKWT 183. 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 The found patient nonverbal and unable to walk. In the ER, stroke protocol was initiated, neurology was consulted, patient taken to CT scan and CT head showed diffuse metastatic disease. Of note, patient was presented to ER on July 07, 2021 and was diagnosed with metastatic brain tumor, CT chest abdomen pelvis with IV contrast that time showed left perihilar mass most compatible with bronchogenic carcinoma with multiple satellite lesions to the left upper lobe and probable right lower lobe Daily clinical course: 09/15/21 Patient with history of lung cancer with brain mets. Presents with altered mental status, non verbal. CT shows Brain mets with progression of disease. For MRI Brain today. Neurology consulted Will also consult Dr. Gamez, Hematology/Oncologist 09/16/2021; neuro work-up is still pending, patient is severely hypoxic. Poor prognosis, full CODE STATUS, library consultant recommendations noted and appreciated. Unable to do brain MRI as patient requiring Bipap 09/17/2021; I discussed with patient's brother Mr. Dov Fitzpatrick at [phone] patient's critical illness ,poor prognosis goals of treatment, And CODE STATUS, patient's brother was very emotional and requested DNR status, patient's nurse Ms. Whitney witnessed the brothers conversation. Signed essential papers, patient is DNR status at this point. Nursing charge nurse informed 09/18/2021; pending hospice and palliative care, discussed with patient's brother who agreed Case management DC planning with inpatient hospice versus home with hospice versus SNF with hospice Patient is ready to be discharged, poor prognosis,DNR status 09/19/2021; I called patient's brother at [phone] and updated patient's condition, discussed the options of hospice inpatient versus at home placement He verbalized understanding and agreed with the plan, encouraged him to call back if he has new Questions or Concerns 09/20/21: Patient accepted for hospice, patient currently on BiPAP. Patient will be discharged home with hospice and supplemental O2 Disposition: 20 Final Discharge Diagnosis (Prints w/discharge instructions): --Brain metastasis with history of lung cancer. --Metabolic evidence of fatty. --Sinus tachycardia. --History of seizure. --Acute hypoxic respiratory failure due to underlying metastatic lung cancer, POA. --Hypertension. --DNR status Time spent for discharge: 34 minutes Core Measure Documentation - Palliative Care Palliative Care/ Comfort Measures: Hospice Care - Core Measures Any of the following diagnoses?: history only Exam - Physical Exam Narrative exam: General appearance: Present: severe distress, cachectic, disheveled, other - EENT Eyes: Present: PERRL, EOM intact - Neck Neck: Present: supple, normal ROM - Respiratory Respiratory effort: normal Respiratory: bilateral: diminished, rhonchi, negative: rales, wheezing - Cardiovascular Rhythm: regular Heart Sounds: Present: S1 & S2 - Extremities Extremities: no ischemia, No edema - Abdominal General gastrointestinal: soft, non-tender, non-distended, normal bowel sounds - Integumentary Integumentary: Present: clear, warm - Psychiatric Psychiatric: other (Noncommunicative) - Neurologic Neurologic: other - Constitutional Vitals: Temp Pulse Resp BP Pulse Ox 97.6 F 133 H 35 H 153/110 91 09/20/21 08:29 09/20/21 08:52 09/20/21 08:52 09/20/21 08:29 09/20/21 08:52 Plan Activity: fall precautions Follow up with: PRIMARY CAREMD [Primary Care Provider] - 7 Days
[2021-09-20] MEDS: D5W/0.9% NACL 1,000 ML IV SCH (22:59)
[2021-09-21 08:55] VITALS: BP 160/115
--- NOTE | 2021-09-21 10:27 | Death Summary ---
Summary - Providers Date of service: 09/21/21 Consults: 09/14/21 20:25 Speech Therapy Evaluation and Treat [CONS] Routine Reason For Exam: Patient failed swallow screen 09/14/21 21:42 Consult to Physician [CONS] Routine Comment: Consulting Provider: FELI MART Physician Instructions: Reason For Exam: Brain mets Occupational Therapy Evaluate and Treat [CONS] Routine Comment: Reason For Exam: Neuro deficits Physical Therapy Evaluation and Treat [CONS] Routine Comment: Reason For Exam: Neuro deficits 09/15/21 10:09 Consult to Physician [CONS] Routine Comment: Consulting Provider: ARASH GAMEZ Physician Instructions: Reason For Exam: Brain metastases,history of lung ca 09/19/21 14:21 Consult to Dietitian/Nutrition [CONS] Routine Physician Instructions: Assess nutrtn needs, initiate, modify, manage TF Reason For Exam: Reason for Consult: Write/Manage Tube Feeding Reason for Consult: Write/Manage Tube Feeding Attending: JOSUE PRATHER - summary Date of admission: 09/14/21 21:18 Date of : 09/21/21 Significant findings: Patient pronounced: 9:15 am 09/21/21 Brief Hospital course 50-year male with history of CVA with left-sided deficit was brought to the hospital because patient becomes suddenly nonverbal. Family reports last LKWT 1834. 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 The found patient nonverbal and unable to walk. In the ER, stroke protocol was initiated, neurology was consulted, patient taken to CT scan and CT head showed diffuse metastatic disease. Of note, patient was presented to ER on July 07, 2021 and was diagnosed with metastatic brain tumor, CT chest abdomen pelvis with IV contrast that time showed left perihilar mass most compatible with bronchogenic carcinoma with multiple satellite lesions to the left upper lobe and probable right lower lobe 09/15/21 Patient with history of lung cancer with brain mets. Presents with altered mental status, non verbal. CT shows Brain mets with progression of disease. For MRI Brain today. Neurology consulted Will also consult Dr. Gamez, Hematology/Oncologist 09/16/2021; neuro work-up is still pending, patient is severely hypoxic. Poor prognosis, full CODE STATUS, consultants intern recommendations noted and appreciated. Unable to do brain MRI as patient requiring Bipap 09/17/2021; I discussed with patient's brother Mr. Dov Fitzpatrick at [phone] patient's critical illness ,poor prognosis goals of treatment, And CODE STATUS, patient's brother was very emotional and requested DNR status, patient's nurse Ms. Whitney witnessed the brothers conversation. Signed essential papers, patient is DNR status at this point. Nursing charge nurse informed 09/18/2021; pending hospice and palliative care, discussed with patient's brother who agreed Case management DC planning with inpatient hospice versus home with hospice versus SNF with hospice Patient is ready to be discharged, poor prognosis,DNR status 09/19/2021; I called patient's brother at [phone] and updated patient's condition, discussed the options of hospice inpatient versus at home placement He verbalized understanding and agreed with the plan, encouraged him to call back if he has new Questions or Concerns 09/20/21: Patient accepted for hospice, patient currently on BiPAP. Patient will be discharged home with hospice and supplemental O2 09/21/20; patient was planned for discharge this morning and transportation was arranged for hospice. According to RN patient noted to be tachycardic on the monitor and she was going to give him a dose of IV beta-andie which was ordered as needed. Before she can even give the medication patient heart rate slowed down and patient noted to be unresponsive. I was called to evaluate the patient and I found the patient without any effort of respiration, no heartbeat fixed dilated pupil no pupillary reflexes. Patient was then pronounced . I called patient brother to update and I offered my convalescence. Cause of : Cardiorespiratory arrest due to severe hypoxic respiratory failure due to stage IV lung cancer with brain metastasis.
[2021-09-21] MEDS: levETIRAcetam 500 MG in DEXTROSE 5% IN WATER 100 ML IV SCH (10:28)
[2021-09-21] MEDS: FAMOTIDINE 20 MG/2 ML INJ IV SCH (10:28)
[2021-09-21] MEDS: ENOXAPARIN 40 MG/0.4 ML INJ SUB-Q SCH (10:28)
== END 2021-09-21 17:45 | DRG 70 ==
LOC: ED 19:51 → 3A 21:18 → 4A 09-15 11:44
PROVIDERS: ADMIT Hospitalist; ATTEND Internal Medicine
PROC: 5A09557 Assistance with Respiratory Ventilation, Greater than 96 Consecutive Hours, Continuous Positive Airway Pressure (ICD-10-PCS; principal; 2021-09-15)
DX: G93.41 Metabolic encephalopathy (principal); J96.01 Acute respiratory failure with hypoxia; C34.90 Malignant neoplasm of unspecified part of unspecified bronchus or lung; C79.31 Secondary malignant neoplasm of brain; R00.0 Tachycardia, unspecified; Z66 Do not resuscitate; I50.9 Heart failure, unspecified; I46.9 Cardiac arrest, cause unspecified
CPT/HCPCS: 36415; 70450; 71045; 80048; 80053; 80061; 82140; 82550; 82553; 84484; 85007; 85025; 85027; 85610; 85670; 85730; 93005; 93306; 94640; 94660; 94760; 99285; G0378; J3490; J7060; J9280; J0360; J0696; J1100; J1650; J1940; J1953; J2060; J2270; J7042